=== PATIENT | male | born 1950 | race Caucasian/White ===

== ENCOUNTER 2016-12-17 07:37 | Outpatient (CLI) | payer BC ==
[2016-12-17 08:09] LABS: BASOPHILS % (AUTO) 0.6 %; EOSINOPHILS # (AUTO) 0.1 10^3/uL (0.0-0.7); EOSINOPHILS % (AUTO) 1.9 %; HCT - HEMATOCRIT 54.8 % (42.0-52.0); HGB - HEMOGLOBIN 18.7 g/dL (14.0-18.0); LYMPHOCYTES # (AUTO) 1.1 10^3/uL (1.5-3.5); LYMPHOCYTES % (AUTO) 15.6 %; MEAN CORPUSCULAR HEMOGLOBIN 33.3 pg (27.0-31.0); MEAN CORPUSCULAR HGB CONC 34.1 g/dL (32.0-36.0); MEAN CORPUSCULAR VOLUME 97.6 fL (80.0-94.0); MEAN PLATELET VOLUME 7.8 fL (7.4-11.4); MONOCYTES # (AUTO) 0.6 10^3/uL (0.0-1.0); MONOCYTES % (AUTO) 7.8 %; NEUTROPHILS # (AUTO) 5.3 10^3/uL (1.5-6.6); NEUTROPHILS % (AUTO) 74.1 %; NUCLEATED RED BLOOD CELLS AUTO 0.1 /100WBC; RED BLOOD COUNT 5.61 10^6/uL (4.70-6.10); RED CELL DISTRIBUTION WIDTH 14.5 % (12.0-15.0); UNCORRECTED WHITE BLOOD COUNT 7.2 x10^3/uL; WHITE BLOOD COUNT 7.2 x10^3/uL (4.8-10.8)
== END 2016-12-17 07:38 | disposition home or self-care (01) ==
LOC: LAB 07:37
PROVIDERS: ATTEND Internal Medicine Cardiovascular Disease
DX: I25.10 Atherosclerotic heart disease of native coronary artery without angina pectoris (principal)
CPT/HCPCS: 36415; 85025

== ENCOUNTER 2017-02-27 18:19 | Emergency (ER) | payer BC ==
--- NOTE | 2017-02-27 19:23 | ED Physician Documentation ---
PD HPI ABD PAIN - Stated complaint Stated Complaint: ABD CRAMPING - Chief complaint Chief Complaint: Abd Pain - History obtained from History obtained from: Patient - History of Present Illness Timing - onset: Today Timing - duration: Days (1) Timing - details: Gradual onset, Still present Quality: Cramping, Pain Location: Epigastric, Other (upper abd) Radiation: No: Chest, Lower back Improved by: No: Vomiting (but feels bloating and nausea; unable to vomit due to prior Anika wrap for GERD.) Worsened by: Eating Associated symptoms: Nausea. No: Fever, Vomiting, Diarrhea, Melena, Hematochezia Similar symptoms before: Diagnosis (gastritis/ulcer in the past.) Recently seen: Not recently seen Review of Systems Constitutional: denies: Fever, Chills, Myalgias Nose: denies: Rhinorrhea / runny nose, Congestion Throat: denies: Sore throat Cardiac: denies: Chest pain / pressure, Palpitations Respiratory: denies: Dyspnea GI: reports: Abdominal Pain, Nausea. denies: Vomiting, Diarrhea, Hematemesis : denies: Dysuria, Frequency PD PAST MEDICAL HISTORY - Past Medical History Cardiovascular: Coronary artery disease Respiratory: None Neuro: None GI: GI bleed, Other : None Musculoskeletal: None, Other (prior polio with weakness left leg) - Past Surgical History Past Surgical History: Yes Cardiovascular: Coronary stent - Present Medications Home Medications: Ambulatory Orders Medication Instructions Recorded Confirmed Lisinopril 20 mg ORAL BID 12/07/15 12/07/15 Pantoprazole [Protonix] 40 mg ORAL BID 12/07/15 12/07/15 Aspirin [Aspir-Low] 81 mg PO DAILYWM #30 tablet. 12/09/15 Ferrous Sulfate 325 mg PO BID #60 tablet 12/09/15 HYDROcod/ACETAM 5/325 [[place] 5/325] 1 tab PO Q6H PRN #12 tablet 02/27/17 Metoclopramide [Reglan] 10 mg PO Q6H PRN #20 tablet 02/27/17 - Allergies Allergies/Adverse Reactions: Allergies Allergy/AdvReac Type Severity Reaction Status Date / Time Penicillins Allergy Unknown Verified 02/27/17 18:25 - Social History Does the pt smoke?: No Smoking Status: Never smoker Does the pt drink ETOH?: Yes ETOH Use: Wine Does the pt have substance abuse?: No - Immunizations Immunizations are current?: Yes Immunizations: TDAP current <10years PD ED PE NORMAL - Vitals Vital signs reviewed: Yes - General General: Alert and oriented X 3, Well developed/nourished - HEENT HEENT: PERRL (nonicteric), Moist mucous membranes, Pharynx benign - Neck Neck: Supple, no meningeal sign, No adenopathy - Cardiac Cardiac: RRR, No murmur - Respiratory Respiratory: Clear bilaterally - Abdomen Abdomen: Normal bowel sounds, Soft, No organomegaly, Other (tender upper abd/ epigastric area with some guarding and hyperactive bowel sounds. ). No: Non distended (some fullness and distension in suprapubic and lower abd area. ) - Male Male : Deferred - Rectal Rectal: Deferred - Back Back: No CVA TTP - Derm Derm: Normal color, Warm and dry - Extremities Extremities: Normal ROM s pain, No edema, No calf tenderness / cord, Other ( muscle atrophy left leg compared to right.) - Neuro Neuro: Alert and oriented X 3, No motor deficit, Normal speech Results - Vitals Vitals: Vital Signs - 24 hr 02/27/17 02/27/17 02/27/17 18:22 21:12 23:54 Temperature 36.7 C Heart Rate 116 H 80 96 Respiratory 18 18 18 Rate Blood Pressure 189/117 H 186/112 H 191/123 H O2 Saturation 96 97 97 Oxygen O2 Source Room air - Labs Labs: Laboratory Tests 02/27/17 02/27/17 02/27/17 19:10 19:10 19:10 WBC 11.4 H RBC 5.81 Hgb 19.3 H Hct 57.9 H MCV 99.6 H MCH 33.3 H MCHC 33.4 RDW 13.6 Plt Count 237 MPV 8.1 Neut # 10.5 H Lymph # 0.4 L [place] # 0.4 Eos # 0.1 Baso # 0.0 Absolute Nucleated RBC 0.01 Nucleated RBC % 0.1 Sodium 132 L Potassium 3.7 Chloride 102 Carbon Dioxide 19 L Anion Gap 11.0 BUN 18 Creatinine 0.6 Estimated GFR (MDRD) 135 Glucose 131 H Calcium 8.7 Total Bilirubin 1.5 H AST 20 ALT 36 Alkaline Phosphatase 76 Troponin I < 0.04 Total Protein 7.5 Albumin 4.1 Globulin 3.4 Albumin/Globulin Ratio 1.2 Lipase 35 - Rads (name of study) abd CT Radiology: Prelim report reviewed, EMP read contemporaneously (large bladder and large gastric air amount; consider gastric outlet obstruction?. Awaiting Radiologist report. ) PD MEDICAL DECISION MAKING - ED course Complexity details: reviewed results (large bladder (very large) and distended gastrum. No GI obstruction per se. ), re-evaluated patient (feeling better with IV meds. Still slight nausea. Can try Reglan as well. To get CT abd to better evaluate for obstruction/etc. ), considered differential, d/w patient, other ( toussaint by nursing as bedside U/S still showing markedly enlarged bladder. 2700 ml out from otussaint, wow. ) Departure - Departure Disposition: Home, Self Care Clinical Impression: Urinary retention, Acute distention of stomach Abdominal pain Qualifiers: Abdominal location: epigastric Qualified Code(s): R10.13 - Epigastric pain Condition: Stable Record reviewed to determine appropriate education?: Yes Instructions: ED Catheter Care Toussaint, ED Retention Urinary Male, ED Epigastric Pain [facility] Follow-Up: Jennifer Rodriguez PA-C [Primary Care Provider] - [facility] [Provider Group] Prescriptions: HYDROcod/ACETAM 5/325 [[place] 5/325] 1 tab PO Q6H PRN #12 tablet PRN Reason: Pain Metoclopramide [Reglan] 10 mg PO Q6H PRN #20 tablet PRN Reason: Nausea / Vomiting Comments: For the upper stomach pain, the stomach does appear distended on CT with fluid and gas. It may not be passing out of the stomach well. Clear liquids only for 12-24 hours and use antiemetic and pain meds as needed. Continue your usual other meds except hold the iron tablet for a week, as this can irritate the stomach sometimes. See if you are feeling okay over the next day and if so, then resume usual diet and foods. Regarding the bladder: keep the toussaint in place until follow up. Call Urology on Wednesday to make an appt and typically this would be in the next week or so. If prolonged time for appt, then follow up with Primary Care about it end of the week. The bladder has likely been overdistended for a long time and will need time to shrink back and get some tone and healing in the wall muscles. Potentially the marked fullness of the bladder may have been causing some crowding of abd cavity and contributed to the stomach symptoms, and if so the upper stomach may improve readily with having the bladder empty. Return as needed to the ER for acute symptoms or problems.
[2017-02-27] MEDS ORDERED: SODIUM CHLORIDE 0.9% 1,000 ML IV ONE (19:37)
[2017-02-27] MEDS ORDERED: HYDROmorphone 1 MG/ML SYRINGE IVP STA ×2 (19:37→21:53)
[2017-02-27] MEDS ORDERED: LIDOCAINE VISCOUS 2% 15 ML UDC MM STA (19:37)
[2017-02-27] MEDS ORDERED: ONDANSETRON 4 MG/2 ML VIAL IVP STA (19:37)
[2017-02-27] MEDS ORDERED: MAG HYDROX/AL HYDROX/SIMETH 30 ML UDC PO STA (19:37)
[2017-02-27 19:56] LABS: BASOPHILS % (AUTO) 0.4 %; EOSINOPHILS # (AUTO) 0.1 10^3/uL (0.0-0.7); EOSINOPHILS % (AUTO) 0.4 %; HGB - HEMOGLOBIN 19.3 g/dL (14.0-18.0); LYMPHOCYTES # (AUTO) 0.4 10^3/uL (1.5-3.5); LYMPHOCYTES % (AUTO) 3.4 %; MEAN CORPUSCULAR HEMOGLOBIN 33.3 pg (27.0-31.0); MEAN CORPUSCULAR HGB CONC 33.4 g/dL (32.0-36.0); MEAN CORPUSCULAR VOLUME 99.6 fL (80.0-94.0); MEAN PLATELET VOLUME 8.1 fL (7.4-11.4); MONOCYTES # (AUTO) 0.4 10^3/uL (0.0-1.0); MONOCYTES % (AUTO) 3.1 %; NEUTROPHILS # (AUTO) 10.5 10^3/uL (1.5-6.6); NEUTROPHILS % (AUTO) 92.7 %; PLT - PLATELET COUNT 237 10^3/uL (130-450); RED BLOOD COUNT 5.81 10^6/uL (4.70-6.10); RED CELL DISTRIBUTION WIDTH 13.6 % (12.0-15.0); WHITE BLOOD COUNT 11.4 x10^3/uL (4.8-10.8)
[2017-02-27 20:08] LABS: ALBUMIN 4.1 g/dL (3.2-5.5); ALBUMIN/GLOBULIN RATIO 1.2 (1.0-2.2); BILIRUBIN,TOTAL 1.5 mg/dL (0.2-1.0); CALCIUM 8.7 mg/dL (8.5-10.3); CREATININE 0.6 mg/dL (0.6-1.2); TOTAL PROTEIN 7.5 g/dL (6.7-8.2)
[2017-02-27] MEDS ORDERED: FAMOTIDINE 20 MG TABLET PO STA (21:16)
[2017-02-27] MEDS ORDERED: IOPAMIDOL-300 100 ML VIAL ONE (21:24)
[2017-02-27] MEDS ORDERED: IOPAMIDOL-300 100 ML VIAL IVP ONE (21:41)
[2017-02-27] MEDS ORDERED: METOCLOPRAMIDE 10 MG/2 ML VIAL IVP STA (21:53)
--- NOTE | 2017-02-27 22:20 | CT Preliminary Report ---
Exam: CT ABDOMEN/PELVIS W/ IMPRESSION: 1. Mildly distended urinary bladder, suggesting bladder outlet obstruction. 2. Transdiaphragmatic herniation of the fundoplication wrap. 3. Colonic diverticulosis without CT evidence for acute diverticulitis. [facility] SITE ID: [id number]
--- NOTE | 2017-02-27 22:23 | CT Report ---
EXAM: CT ABDOMEN AND PELVIS EXAM DATE: 02/27/2017 09:54 PM. CLINICAL HISTORY: Upper abdominal pain and nausea/vomiting COMPARISONS: Noncontrast CT abdomen/pelvis 08/14/2006. TECHNIQUE: Routine helical CT imaging was performed through the abdomen and pelvis. IV contrast: 100 mL Isovue-300. Enteric contrast: None. Reconstructions: Coronal and sagittal. In accordance with CT protocol optimization, one or more of the following dose reduction techniques w ere utilized for this exam: automated exposure control, adjustment of mA and/or KV based on patient s ize, or use of iterative reconstructive technique. FINDINGS: Lung Bases: Unremarkable. Liver: Normal. No focal hepatic lesion. Gallbladder/Bile Ducts: Unremarkable. No visualized stones or biliary ductal dilatation. Spleen: Normal. Pancreas: Normal. Adrenal Glands: Normal. Kidneys and Ureters: Few subcentimeter round hypoattenuating foci in the bilateral renal cortices lik tammy represent cysts. Focal cortical scarring in the lateral left interpolar cortex. No stones, hydron ephrosis, or hydroureter. Peritoneal Cavity/Bowel: Post fundoplication with transdiaphragmatic herniation of the wrap. Colonic diverticulosis. No focal colon wall thickening or adjacent mesenteric fat stranding to suggest acute diverticulitis. No evidence for bowel obstruction. The appendix is normal. No free fluid, pneumoperit oneum, or adenopathy. Pelvic Organs: Markedly distended bladder. Several bladder diverticula, the largest left posterolater al. Vasculature: Moderate atherosclerotic calcifications within the aorta and iliac arteries. Bones: Lower thoracic spine DISH. Mild S-shaped curvature of the lumbar spine. No acute bony abnormal ity. Other: Small fat-containing right inguinal hernia. IMPRESSION: 1. Mildly distended urinary bladder, suggesting bladder outlet obstruction. 2. Transdiaphragmatic herniation of the fundoplication wrap. 3. Colonic diverticulosis without CT evidence for acute diverticulitis. [facility] Referring Provider Line: [phone] SITE ID: [id number]
[2017-02-27] MEDS ORDERED: LIDOCAINE 2% URO-JET 5 ML SYRINGE UR STA (22:48)
[2017-02-27] MEDS ORDERED: ONDANSETRON ODT 4 MG Prepack 2 TL PRN (23:03)
[2017-02-27] MEDS ORDERED: HYDROcod/ACET 5/325 Prepack 6 PO STA (23:03)
[2017-02-27 23:55] VITALS: BP 191/123
== END 2017-02-28 00:01 | disposition home or self-care (01) ==
LOC: ED 18:19
DX: T83.83XA Hemorrhage due to genitourinary prosthetic devices, implants and grafts, initial encounter (principal); R33.9 Retention of urine, unspecified; N30.01 Acute cystitis with hematuria; R14.0 Abdominal distension (gaseous); R10.13 Epigastric pain; I25.10 Atherosclerotic heart disease of native coronary artery without angina pectoris; Z86.12 Personal history of poliomyelitis; Z79.82 Long term (current) use of aspirin
CPT/HCPCS: 36415; 51702; 51798; 74177; 80053; 81001; 83690; 84484; 85025; 87086; 96361; 96374; 99283; 99284; A9270; J1170; Q9967; 81003; 86850; 86900; 86901

== ENCOUNTER 2017-02-28 07:40 | Emergency (ER) | payer BC ==
[2017-02-28 07:51] VITALS: BP 169/109
[2017-02-28] MEDS ORDERED: LIDOCAINE 2% URO-JET 5 ML SYRINGE UR STA (08:05)
--- NOTE | 2017-02-28 08:06 | ED Physician Documentation ---
PD HPI MALE - Stated complaint Stated Complaint: MALE /CATH ISSUE - Chief complaint Chief Complaint: General - History obtained from History obtained from: Patient, Family - History of Present Illness Timing - onset: Last night Timing - duration: Hours Timing - details: Abrupt onset, Still present Associated symptoms: Indwelling catheter, Toussaint problem Similar symptoms before: Has not had sx before Recently seen: Emergency Dept - Additional information Additional information: 67-year-old male appears to have had chronic urinary retention and a Toussaint catheter was placed last night and 2700 mL's of urine were drained. The patient did have some pain at the site of insertion and this pain has persisted and he is now developed some bleeding. He has the Toussaint bag filled with blood and he does have urethral pain as well. Review of Systems Constitutional: denies: Fever Eyes: denies: Decreased vision Ears: denies: Ear pain Nose: denies: Congestion Throat: denies: Sore throat Cardiac: denies: Chest pain / pressure Respiratory: denies: Dyspnea, Cough GI: denies: Abdominal Pain, Nausea, Vomiting, Constipation, Diarrhea : reports: Toussaint Problem (blood in the toussaint). denies: Dysuria Skin: denies: Rash Musculoskeletal: denies: Neck pain, Back pain PD PAST MEDICAL HISTORY - Past Medical History Cardiovascular: Coronary artery disease Respiratory: None Neuro: None GI: GI bleed, Other : None Musculoskeletal: None, Other - Past Surgical History Past Surgical History: Yes Cardiovascular: Coronary stent - Present Medications Home Medications: Ambulatory Orders Medication Instructions Recorded Confirmed Lisinopril 20 mg ORAL BID 12/07/15 12/07/15 Pantoprazole [Protonix] 40 mg ORAL BID 12/07/15 12/07/15 Aspirin [Aspir-Low] 81 mg PO DAILYWM #30 tablet. 12/09/15 Ferrous Sulfate 325 mg PO BID #60 tablet 12/09/15 HYDROcod/ACETAM 5/325 [[place] 5/325] 1 tab PO Q6H PRN #12 tablet 02/27/17 Metoclopramide [Reglan] 10 mg PO Q6H PRN #20 tablet 02/27/17 HYDROcod/ACETAM 5/325 [[place] 5/325] 1 - 2 ea PO Q6H PRN #15 tablet 02/28/17 Levofloxacin [Levaquin] 500 mg PO DAILY #10 tablet 02/28/17 Tamsulosin [Flomax] 0.4 mg PO DAILY #20 capsule 02/28/17 - Allergies Allergies/Adverse Reactions: Allergies Allergy/AdvReac Type Severity Reaction Status Date / Time Penicillins Allergy Unknown Verified 02/27/17 18:25 - Social History Does the pt smoke?: No Smoking Status: Never smoker Does the pt drink ETOH?: Yes Does the pt have substance abuse?: No - Immunizations Immunizations are current?: Yes Immunizations: TDAP current <10years PD ED PE NORMAL - Vitals Vital signs reviewed: Yes (hypertensive) - General General: Alert and oriented X 3, No acute distress, Well developed/nourished - HEENT HEENT: Atraumatic, PERRL, EOMI - Respiratory Respiratory: No respiratory distress - Derm Derm: Normal color, Warm and dry, No rash - Extremities Extremities: Other (The lower extremities are atrophied consistent with polio survival ) - Neuro Neuro: Alert and oriented X 3, Normal speech Eye Opening: Spontaneous Motor: Obeys Commands Verbal: Oriented GCS Score: 15 - Psych Psych: Normal mood, Normal affect Results - Vitals Vitals: Vital Signs - 24 hr 02/28/17 07:46 Temperature 36.5 C Heart Rate 86 Respiratory 15 Rate Blood Pressure 169/109 H O2 Saturation 97 Oxygen O2 Source Room air - Labs Labs: Laboratory Tests 02/28/17 08:42 Urine Color RED/BLOODY Urine Clarity SL. CLOUDY Urine pH 7.0 Ur Specific [place] 1.025 Urine Protein >=300 Urine Glucose (UA) NEGATIVE Urine Ketones TRACE Urine Occult Blood LARGE H Urine Nitrite POSITIVE H Urine Bilirubin NEGATIVE Urine Urobilinogen 1 (NORMAL) Ur Leukocyte Esterase TRACE H Urine RBC TNTC H Urine WBC 11-25 H Urine WBC Clumps PRESENT Ur Squamous Epith Cells RARE Squamous Urine Bacteria Few Urine Mucus Moderate Strands Ur Microscopic Review INDICATED Urine Culture Comments INDICATED PD MEDICAL DECISION MAKING - ED course Complexity details: reviewed old records, reviewed results, re-evaluated patient , considered differential, d/w patient, d/w family ED course: 67-year-old male with what appears to be chronic urinary obstruction has had a Toussaint catheter placed last night and is now developed some irritation and bleeding. Evaluation of the urine today appears to demonstrate infection and the patient is given Levaquin and Flomax here in the emergency department. His Toussaint catheter is replaced and he is administered hydrocodone. He has much better comfort following this. Departure - Departure Disposition: 01 Home, Self Care Clinical Impression: Urinary retention Urinary tract infection Qualifiers: Urinary tract infection type: acute cystitis Hematuria presence: with hematuria Qualified Code(s): N30.01 - Acute cystitis with hematuria Condition: Stable Instructions: ED UTI Cystitis Male, ED Retention Urinary Male Follow-Up: Jennifer Rodriguez PA-C [Primary Care Provider] - Prescriptions: HYDROcod/ACETAM 5/325 [[place] 5/325] 1 - 2 ea PO Q6H PRN #15 tablet PRN Reason: Pain Levofloxacin [Levaquin] 500 mg PO DAILY #10 tablet Tamsulosin [Flomax] 0.4 mg PO DAILY #20 capsule
[2017-02-28] MEDS ORDERED: HYDROcod/ACETAM 5/325 MG TABLET PO STA (08:34)
[2017-02-28 08:51] LABS: BILIRUBIN,URINE NEGATIVE (NEGATIVE)
[2017-02-28 08:57] LABS: UA w/ MICROSCOPIC CHARGE YES
[2017-02-28 08:58] LABS: UR CULTURE IF IND INDICATED
[2017-02-28] MEDS ORDERED: levoFLOXacin 250 MG TABLET PO STA (09:21)
[2017-02-28] MEDS ORDERED: TAMSULOSIN 0.4 MG CAPSULE PO STA (09:23)
== END 2017-02-28 10:02 | disposition home or self-care (01) ==
LOC: ED 07:40
DX: T83.83XA Hemorrhage due to genitourinary prosthetic devices, implants and grafts, initial encounter (principal); R33.9 Retention of urine, unspecified; N30.01 Acute cystitis with hematuria; I25.10 Atherosclerotic heart disease of native coronary artery without angina pectoris; Z86.12 Personal history of poliomyelitis; Z79.82 Long term (current) use of aspirin
CPT/HCPCS: 51702; 81001; 81003; 87086; 99283

== ENCOUNTER 2017-04-09 09:25 | Emergency (ER) | payer BC ==
[2017-04-09] MEDS ORDERED: SODIUM CHLORIDE 0.9% 1,000 ML IV ONE ×2 (10:04→11:47)
--- NOTE | 2017-04-09 10:09 | ED Physician Documentation ---
PD HPI GI BLEED - Stated complaint Stated Complaint: MALE - Chief complaint Chief Complaint: Abd Pain - History obtained from History obtained from: Patient - History of Present Illness Timing - onset: Today Timing - details: Still present Associated symptoms: BRBPR Similar symptoms before: Diagnosis (History of GI bleed x 2 in past.) - Additional information Additional information: The patient is a 67-year-old male with history of GI bleed twice in the past, who presents with bright red blood per rectum. His rectal bleeding started this morning and he has had 3 large bloody stools. He reports mild lower abdominal pain. He denies nausea or vomiting. He denies lightheadedness. He denies fever, chest pain, or shortness of breath. His last GI bleed was in December 2015, and was thought to be lower GI bleed, although the site was not specifically determined. He also had an upper GI bleed about 2 years prior to that, associated with Plavix therapy, which has since been discontinued. Colonoscopy has revealed "a lot of diverticula." Review of Systems Constitutional: denies: Fever Eyes: denies: Irritation Ears: denies: Tinnitus/ringing Nose: denies: Congestion Throat: denies: Sore throat Cardiac: denies: Chest pain / pressure Respiratory: denies: Dyspnea, Cough GI: reports: Abdominal Pain, Bloody / black stool. denies: Nausea, Vomiting : denies: Dysuria Skin: denies: Rash Musculoskeletal: denies: Back pain Neurologic: denies: Focal weakness, Numbness, Headache PD PAST MEDICAL HISTORY - Past Medical History Cardiovascular: Coronary artery disease Respiratory: None Neuro: None GI: GI bleed, Other : None Musculoskeletal: None, Other - Past Surgical History Past Surgical History: Yes Cardiovascular: Coronary stent - Present Medications Home Medications: Ambulatory Orders Medication Instructions Recorded Confirmed Pantoprazole [Protonix] 40 mg ORAL BID 12/07/15 12/07/15 Aspirin [Aspir-Low] 81 mg PO DAILYWM #30 tablet. 12/09/15 Metoclopramide [Reglan] 10 mg PO Q6H PRN #20 tablet 02/27/17 Tamsulosin [Flomax] 0.4 mg PO DAILY #20 capsule 02/28/17 Cefdinir BID 04/09/17 Losartan [Cozaar] 100 mg 04/09/17 predniSONE [Prednisone] 40 mg MDD daily 04/09/17 - Allergies Allergies/Adverse Reactions: Allergies Allergy/AdvReac Type Severity Reaction Status Date / Time Penicillins Allergy Unknown Verified 02/27/17 18:25 - Social History Does the pt smoke?: No Smoking Status: Never smoker Does the pt drink ETOH?: Yes Does the pt have substance abuse?: No - Immunizations Immunizations are current?: Yes Immunizations: TDAP current <10years PD ED PE NORMAL - Vitals Vital signs reviewed: Yes (tachycardic) - General General: Alert and oriented X 3, Well developed/nourished, Other (I was called stat to the patient's room when he lost consciousness while being assessed by the nurse.) - HEENT HEENT: Atraumatic, EOMI, Moist mucous membranes - Neck Neck: Supple, no meningeal sign, No adenopathy, No JVD - Cardiac Cardiac: No murmur, Other (Rapid rate, regular rhythm.) - Respiratory Respiratory: No respiratory distress, Clear bilaterally - Abdomen Abdomen: Soft, Other (Mild tenderness to palpation in the lower abdomen, without rebound or guarding.) - Rectal Rectal: Other (Dark bloody stool.) - Back Back: No CVA TTP - Derm Derm: Other (Pale appearance.) - Extremities Extremities: No edema, No calf tenderness / cord - Neuro Neuro: Alert and oriented X 3, No motor deficit, No sensory deficit, Other (The patient was initially not responding verbally and had eye deviation to the left when I entered the room. After he was placed in Trendelenburg he quickly regained consciousness, and was fully coherent.) Eye Opening: Spontaneous Motor: Obeys Commands Verbal: Oriented GCS Score: 15 Results - Vitals Vitals: Vital Signs - 24 hr 04/09/17 04/09/17 04/09/17 09:37 10:14 10:42 Temperature 36.4 C L Heart Rate 119 H 88 70 Respiratory 18 14 16 Rate Blood Pressure 144/95 H 137/99 H 177/88 H O2 Saturation 97 97 98 04/09/17 04/09/17 11:45 12:57 Temperature Heart Rate 90 101 H Respiratory 17 17 Rate Blood Pressure 140/107 H 155/103 H O2 Saturation 97 99 Oxygen O2 Source Room air - EKG (time done) 10:10 Rate: Rate (enter#) (83) Rhythm: NSR [place]: Normal Intervals: Normal ID QRS: Normal Ischemia: Normal ST segments Computer interpretation: Agree with computer - Labs Labs: Laboratory Tests 04/09/17 04/09/17 04/09/17 10:07 10:07 10:07 WBC 12.1 H RBC 4.69 L Hgb 15.5 Hct 46.2 MCV 98.6 H MCH 33.0 H MCHC 33.5 RDW 13.5 Plt Count 515 H MPV 7.1 L Neut # 9.5 H Lymph # 1.6 [place] # 0.9 Eos # 0.0 Baso # 0.1 Absolute Nucleated RBC 0.00 Nucleated RBC % 0.0 PT 13.4 H INR 1.2 APTT 25.4 Sodium 135 Potassium 3.9 Chloride 98 L Carbon Dioxide 23 Anion Gap 14.0 H BUN 21 H Creatinine 0.8 Estimated GFR (MDRD) 97 Glucose 118 H Calcium 8.8 Total Bilirubin 0.7 AST 47 H ALT 56 Alkaline Phosphatase 63 Total Protein 7.1 Albumin 3.3 Globulin 3.8 Albumin/Globulin Ratio 0.9 L Lipase 67 H Blood Type Antibody Screen Crossmatch IS Only 04/09/17 04/09/17 10:07 11:29 WBC RBC Hgb 13.7 L Hct 40.2 L MCV MCH MCHC RDW Plt Count MPV Neut # Lymph # [place] # Eos # Baso # Absolute Nucleated RBC Nucleated RBC % PT INR APTT Sodium Potassium Chloride Carbon Dioxide Anion Gap BUN Creatinine Estimated GFR (MDRD) Glucose Calcium Total Bilirubin AST ALT Alkaline Phosphatase Total Protein Albumin Globulin Albumin/Globulin Ratio Lipase Blood Type A POSITIVE Antibody Screen NEGATIVE Crossmatch IS Only See Detail PD MEDICAL DECISION MAKING - ED course Complexity details: reviewed results, re-evaluated patient, considered differential, d/w patient, d/w family, d/w direct sales consultant ED course: The patient's presentation is significant for acute GI bleed with syncopal episode. He had 3 large bloody stools prior to arrival in the emergency department, and a fourth 1 at the time of triage. He became syncopal while being admitted to the emergency department. His initial hemoglobin and hematocrit were 15.5 and 46.2. Repeat hemoglobin and hematocrit after 1.5 L normal saline were 13.7 and 40.9. Treatment in the emergency department included placement of 2 peripheral IVs, normal saline 2 L IV followed by infusion at 250 mL/h, and famotidine 20 mg IV. 2 units of typed specific blood were ordered, but were held when he improved after administration of NS, and his Hgb and Hct results became known. I discussed his condition with Dr. Mnedez, who is on-call for Dr. Agarwal , the patient's ship steward. He will accept the patient in transfer to [facility] in [place]. I discussed his condition with the emergency physician, Dr. Crisostomo, since the patient will be transferred initially to the emergency department at [facility]. Transfer forms were completed. At the time of transfer the patient's pulse is 101, blood pressure is 155/103, and he is warm and pink. Departure - Departure Disposition: 02 Transfer Acute Care Hosp Clinical Impression: GI bleed Qualifiers: GI bleed type/associated pathology: unspecified gastrointestinal hemorrhage type Qualified Code(s): K92.2 - Gastrointestinal hemorrhage, unspecified Discharge Date/Time: 04/09/17 12:58
[2017-04-09 10:20] LABS: BASOPHILS # (AUTO) 0.1 10^3/uL (0.0-0.1); BASOPHILS % (AUTO) 0.5 %; EOSINOPHILS % (AUTO) 0.1 %; HGB - HEMOGLOBIN 15.5 g/dL (14.0-18.0); LYMPHOCYTES # (AUTO) 1.6 10^3/uL (1.5-3.5); LYMPHOCYTES % (AUTO) 13.2 %; MEAN CORPUSCULAR HGB CONC 33.5 g/dL (32.0-36.0); MEAN CORPUSCULAR VOLUME 98.6 fL (80.0-94.0); MEAN PLATELET VOLUME 7.1 fL (7.4-11.4); MONOCYTES # (AUTO) 0.9 10^3/uL (0.0-1.0); MONOCYTES % (AUTO) 7.8 %; NEUTROPHILS # (AUTO) 9.5 10^3/uL (1.5-6.6); NEUTROPHILS % (AUTO) 78.4 %; PLT - PLATELET COUNT 515 10^3/uL (130-450); RED BLOOD COUNT 4.69 10^6/uL (4.70-6.10); RED CELL DISTRIBUTION WIDTH 13.5 % (12.0-15.0); WHITE BLOOD COUNT 12.1 x10^3/uL (4.8-10.8)
[2017-04-09 10:25] LABS: INR 1.2 (0.8-1.2); PT - PROTHROMBIN TIME 13.4 secs (9.9-12.6)
[2017-04-09 10:31] LABS: ALBUMIN 3.3 g/dL (3.2-5.5); ALBUMIN/GLOBULIN RATIO 0.9 (1.0-2.2); BILIRUBIN,TOTAL 0.7 mg/dL (0.2-1.0); CALCIUM 8.8 mg/dL (8.5-10.3); CREATININE 0.8 mg/dL (0.6-1.2); TOTAL PROTEIN 7.1 g/dL (6.7-8.2)
[2017-04-09 11:32] LABS: HGB - HEMOGLOBIN 13.7 g/dL (14.0-18.0)
[2017-04-09] MEDS ORDERED: FAMOTIDINE 20 MG/50 ML 50 ML IV ONE (11:45)
[2017-04-09 12:58] VITALS: BP 155/103
== END 2017-04-09 12:58 | disposition short-term general hospital (02) ==
LOC: ED 09:25
DX: K92.2 Gastrointestinal hemorrhage, unspecified (principal); I25.10 Atherosclerotic heart disease of native coronary artery without angina pectoris; Z95.5 Presence of coronary angioplasty implant and graft; Z79.82 Long term (current) use of aspirin
CPT/HCPCS: 36415; 80053; 83690; 85014; 85018; 85025; 85610; 85730; 86850; 86900; 86901; 86920; 93005; 96361; 96374; 99284; 99285

== ENCOUNTER 2017-04-09 12:50 | Outpatient (CLI) | payer BC | END 2017-04-09 12:51 | disposition short-term general hospital (02) | LOC: EMS 12:50 | PROVIDERS: ATTEND Surgery | DX: K92.1 Melena (principal) | CPT/HCPCS: A0425; A0426 ==

== ENCOUNTER 2017-04-16 23:31 | Outpatient (CLI) | payer BC | END 2017-04-16 23:32 | disposition critical access hospital (66) | LOC: EMS 23:31 | PROVIDERS: ATTEND Surgery | DX: R10.30 Lower abdominal pain, unspecified (principal) | CPT/HCPCS: A0425; A0429 ==

== ENCOUNTER 2017-04-16 23:43 | Emergency (ER) | payer BC ==
[2017-04-16] MEDS ORDERED: SODIUM CHLORIDE 0.9% 1,000 ML IV ONE (23:50)
[2017-04-17 00:17] LABS: BASOPHILS % (AUTO) 0.3 %; EOSINOPHILS # (AUTO) 0.1 10^3/uL (0.0-0.7); EOSINOPHILS % (AUTO) 1.2 %; HGB - HEMOGLOBIN 7.9 g/dL (14.0-18.0); LYMPHOCYTES # (AUTO) 0.6 10^3/uL (1.5-3.5); LYMPHOCYTES % (AUTO) 5.7 %; MEAN CORPUSCULAR HEMOGLOBIN 31.1 pg (27.0-31.0); MEAN CORPUSCULAR HGB CONC 33.6 g/dL (32.0-36.0); MEAN CORPUSCULAR VOLUME 92.5 fL (80.0-94.0); MEAN PLATELET VOLUME 7.1 fL (7.4-11.4); MONOCYTES # (AUTO) 0.4 10^3/uL (0.0-1.0); MONOCYTES % (AUTO) 3.9 %; NEUTROPHILS # (AUTO) 10.1 10^3/uL (1.5-6.6); NEUTROPHILS % (AUTO) 88.9 %; PLT - PLATELET COUNT 316 10^3/uL (130-450); RED BLOOD COUNT 2.53 10^6/uL (4.70-6.10); RED CELL DISTRIBUTION WIDTH 19.9 % (12.0-15.0); WHITE BLOOD COUNT 11.3 x10^3/uL (4.8-10.8)
[2017-04-17 00:27] LABS: ALBUMIN 2.6 g/dL (3.2-5.5); ALBUMIN/GLOBULIN RATIO 0.9 (1.0-2.2); BILIRUBIN,TOTAL 0.5 mg/dL (0.2-1.0); CALCIUM 8.1 mg/dL (8.5-10.3); CREATININE 0.6 mg/dL (0.6-1.2); TOTAL PROTEIN 5.6 g/dL (6.7-8.2)
[2017-04-17] MEDS ORDERED: MORPHINE 2 MG/ML CARPUJECT IVP STA (00:52)
--- NOTE | 2017-04-17 01:02 | ED Physician Documentation ---
PD HPI ABD PAIN - Stated complaint Stated Complaint: ABD PAIN - Chief complaint Chief Complaint: Abd Pain - History obtained from History obtained from: Patient, EMS - History of Present Illness Timing - onset: Today Timing - details: Gradual onset, Still present Quality: Cramping, Aching Location: Periumbilical, Suprapubic Worsened by: Position, Palpation Associated symptoms: Nausea. No: Fever, Vomiting, Diarrhea, Constipation Similar symptoms before: Work up / diagnostics, Treatment Recently seen: Surgery - Additional information Additional information: Patient is a 67 year old male who recently had an embolization of a bleeding diverticulosis. Patient was in the hospital until two days ago. Patient states that his pain had been controlled in the hospital but since he had gone home he started to develop sudden sharp suprapubic pain. Patient took one of his oxys but the pain has persisted. Review of Systems Constitutional: reports: Chills. denies: Fever Eyes: denies: Decreased vision Ears: denies: Ear pain, Drainage/discharge Nose: reports: Reviewed and negative Throat: reports: Reviewed and negative Cardiac: denies: Chest pain / pressure, Palpitations Respiratory: denies: Dyspnea, Cough, Wheezing GI: reports: Abdominal Pain, Nausea. denies: Vomiting, Constipation, Diarrhea : denies: Dysuria, Frequency Skin: denies: Rash, Lesions Musculoskeletal: denies: Neck pain, Back pain Neurologic: denies: Generalized weakness, Focal weakness, Numbness, Headache, Head injury Immunocompromised: denies: Immunocompromised PD PAST MEDICAL HISTORY - Past Medical History Cardiovascular: Coronary artery disease Respiratory: None Neuro: None GI: GERD, GI bleed, Ulcers, Diverticulitis, Other : None Psych: Depression, Anxiety Musculoskeletal: Chronic back pain, Other - Past Surgical History Past Surgical History: Yes General: Bowel surgery, Gastric surgery, Colonoscopy, EGD Cardiovascular: Coronary stent - Present Medications Home Medications: Ambulatory Orders Medication Instructions Recorded Confirmed Pantoprazole [Protonix] 40 mg ORAL BID 12/07/15 12/07/15 Aspirin [Aspir-Low] 81 mg PO DAILYWM #30 tablet. 12/09/15 Metoclopramide [Reglan] 10 mg PO Q6H PRN #20 tablet 02/27/17 Tamsulosin [Flomax] 0.4 mg PO DAILY #20 capsule 02/28/17 Cefdinir BID 04/09/17 Losartan [Cozaar] 100 mg 04/09/17 predniSONE [Prednisone] 40 mg MDD daily 04/09/17 Ciprofloxacin HCl [Cipro] 500 mg PO BID #20 tablet 04/17/17 Metronidazole [Flagyl] 500 mg PO TID #30 tablet 04/17/17 Ondansetron Odt [Zofran] 4 mg TL Q6H PRN #20 tablet 04/17/17 oxyCODONE/ACET 5/325 [Percocet 5 1 each PO Q4-6H #7 tablet 04/17/17 mg/325 mg] - Allergies Allergies/Adverse Reactions: Allergies Allergy/AdvReac Type Severity Reaction Status Date / Time Penicillins Allergy Unknown Verified 04/16/17 23:52 - Social History Does the pt smoke?: No Smoking Status: Never smoker Does the pt drink ETOH?: Yes Does the pt have substance abuse?: No - Immunizations Immunizations are current?: Yes Immunizations: TDAP current <10years PD ED PE NORMAL - Vitals Vital signs reviewed: Yes - General General: Alert and oriented X 3 - HEENT HEENT: Atraumatic - Neck Neck: Supple, no meningeal sign - Cardiac Cardiac: RRR, No murmur - Respiratory Respiratory: No respiratory distress - Derm Derm: Normal color - Neuro Neuro: Alert and oriented X 3 Eye Opening: Spontaneous Motor: Obeys Commands Verbal: Oriented GCS Score: 15 PD ED PE EXPANDED - HEENT HEENT: Dry mucous membranes - Abdomen Abdomen: Tender to palpation, Periumbilical, Suprapubic - Male Male : Other (mild edema in groin, likely secondary to post op changes. ) - Extremities Extremities: Other (decreased muscle tone of left lower extremity secondary to polio) Results - Vitals Vitals: Vital Signs - 24 hr 04/16/17 23:50 Temperature 36.8 C Heart Rate 99 Respiratory 20 Rate Blood Pressure 138/74 H O2 Saturation 98 Oxygen O2 Source Room air - Labs Labs: Laboratory Tests 04/16/17 04/16/17 04/16/17 00:00 00:00 00:00 WBC 11.3 H RBC 2.53 L Hgb 7.9 L Hct 23.4 L MCV 92.5 MCH 31.1 H MCHC 33.6 RDW 19.9 H Plt Count 316 MPV 7.1 L Neut # 10.1 H Lymph # 0.6 L [place] # 0.4 Eos # 0.1 Baso # 0.0 Absolute Nucleated RBC 0.00 Nucleated RBC % 0.0 Sodium 135 Potassium 3.2 L Chloride 96 L Carbon Dioxide 25 Anion Gap 14.0 H BUN 7 Creatinine 0.6 Estimated GFR (MDRD) 135 Glucose 164 H Lactic Acid Calcium 8.1 L Total Bilirubin 0.5 AST 16 ALT 16 Alkaline Phosphatase 57 Troponin I < 0.04 Total Protein 5.6 L Albumin 2.6 L Globulin 3.0 Albumin/Globulin Ratio 0.9 L Lipase 28 04/16/17 00:20 WBC RBC Hgb Hct MCV MCH MCHC RDW Plt Count MPV Neut # Lymph # [place] # Eos # Baso # Absolute Nucleated RBC Nucleated RBC % Sodium Potassium Chloride Carbon Dioxide Anion Gap BUN Creatinine Estimated GFR (MDRD) Glucose Lactic Acid 1.2 Calcium Total Bilirubin AST ALT Alkaline Phosphatase Troponin I Total Protein Albumin Globulin Albumin/Globulin Ratio Lipase - Rads (name of study) ct abd pelvis Radiology: Final report received, See rad report (diverticulitis, no abscess or obstruction) PD MEDICAL DECISION MAKING - ED course Complexity details: reviewed old records, reviewed results, re-evaluated patient , considered differential, d/w patient ED course: patient was seen and examined at bedside. IV access was gained and labs were drawn. Patient was treated with a fluid bolus and morphine. imaging was ordered. When patient's labs came back the results showed an anemia of 7.9. results were discussed with the family who stated two days ago it was 7.5. Patient was sent for CT. When patient returned the results were reviewed. Patient was found to have diverticulitis and an enlarged bladder. patient stated that due to his polio he always has a distended bladder and did not want a toussaint. Patient was able to urinate on his own and produce 600ml. Patient was treated with cipro and flagyl which he was able to tolerate without difficulty. Patient and were comfortable with a trial of outpatient antibiotics. Patient required no further inpatient work up at this time and was stable for discharge with close outpatient follow up. Departure - Departure Disposition: 01 Home, Self Care Clinical Impression: Diverticulitis of gastrointestinal tract Condition: Stable Instructions: ED Diverticulitis Follow-Up: primary,care provider [Other] - Within 3 Days Prescriptions: Ciprofloxacin HCl [Cipro] 500 mg PO BID #20 tablet Metronidazole [Flagyl] 500 mg PO TID #30 tablet Ondansetron Odt [Zofran] 4 mg TL Q6H PRN #20 tablet PRN Reason: Nausea / Vomiting oxyCODONE/ACET 5/325 [Percocet 5 mg/325 mg] 1 each PO Q4-6H #7 tablet Comments: Your symptoms today are being caused at least in part to diverticulitis. You were started on two antibiotics today and you will need to be on them for the next 10 days. You should start with a clear liquid diet and progress slowly. You should follow up with your doctor on wednesday for re-evaluation. You may return to the emergency department at any time for new, worsening or uncontrollable symptoms.
[2017-04-17] MEDS ORDERED: IOPAMIDOL-300 100 ML VIAL ONE (01:14)
[2017-04-17] MEDS ORDERED: IOPAMIDOL-300 100 ML VIAL IVP ONE (01:26)
--- NOTE | 2017-04-17 01:57 | CT Preliminary Report ---
Exam: CT ABDOMEN/PELVIS W/ IMPRESSION: 1. Inflamed hepatic flexure of the colon, likely diverticulitis given patient's severe diffuse divert icular disease. Focal colitis 2. Quite distended urinary bladder with back pressure hydroureteronephrosis. Suspect acute on chronic bladder outlet obstruction. Consider Angel catheterization. 3. Severe coronary calcifications. 4. Small hiatal hernia with note of prior Anika. [facility] SITE ID: [id number]
--- NOTE | 2017-04-17 02:00 | CT Report ---
EXAM: CT ABDOMEN AND PELVIS EXAM DATE: 04/17/2017 01:37 AM. CLINICAL HISTORY: Recent abdominal surgery and GI bleed, abdominal pain. COMPARISONS: 02/27/2017. TECHNIQUE: Routine helical CT imaging was performed through the abdomen and pelvis. IV contrast: Yes . Enteric contrast: No . Reconstructions: Coronal and sagittal. In accordance with CT protocol optimization, one or more of the following dose reduction techniques w ere utilized for this exam: automated exposure control, adjustment of mA and/or KV based on patient s ize, or use of iterative reconstructive technique. FINDINGS: Lung Bases: Severe coronary calcifications. Small hiatal hernia with note of prior Anika. Liver: Unremarkable. No suspicious masses. Gallbladder/Bile Ducts: Unremarkable. Spleen: Unremarkable. Pancreas: Unremarkable. Adrenal Glands: Unremarkable. Kidneys: Mild bilateral back pressure hydronephrosis to the level of the quite distended urinary blad hiro. No renal masses seen. Peritoneal Cavity/Bowel: Severe colonic diverticulosis. Evidence of mild inflammation involving hepat ic flexure of the colon. No gross perforation or abscess. No mass seen. Pelvic Organs: Severely distended trabeculated urinary bladder. Posterior left bladder diverticulum a gain noted. Prostate mildly enlarged. Vasculature: No aneurysms or other significant abnormality. Bones: No significant abnormality. Other: Muscle atrophy, left worse than right. IMPRESSION: 1. Inflamed hepatic flexure of the colon, likely diverticulitis given patient's severe diffuse divert icular disease. Focal nonspecific colitis within differential. No pericolonic abscess seen. 2. Quite distended urinary bladder with back pressure hydroureteronephrosis. Suspect acute on chronic bladder outlet obstruction. Consider Angel catheterization. 3. Severe coronary calcifications. 4. Small hiatal hernia with note of prior Anika. [facility] Referring Provider Line: [phone] SITE ID: [id number]
[2017-04-17] MEDS ORDERED: CIPROFLOXACIN 250 MG TABLET PO STA (02:23)
[2017-04-17] MEDS ORDERED: metroNIDAZOLE 250 MG TABLET PO STA (02:23)
[2017-04-17] MEDS ORDERED: oxyCOD/ACETAMIN 5 MG/325 MG TABLET PO STA (02:50)
[2017-04-17 03:04] VITALS: BP 130/70
== END 2017-04-17 03:03 | disposition home or self-care (01) ==
LOC: EDUNIT# → ED 23:43
DX: K57.92 Diverticulitis of intestine, part unspecified, without perforation or abscess without bleeding (principal); I25.10 Atherosclerotic heart disease of native coronary artery without angina pectoris; Z95.5 Presence of coronary angioplasty implant and graft; Z79.82 Long term (current) use of aspirin
CPT/HCPCS: 36415; 74177; 80053; 83605; 83690; 84484; 85025; 96374; 99284; A9270; Q9967

== ENCOUNTER 2017-04-18 13:00 | Inpatient (IN) | payer BC, MEDICARE ==
[2017-04-18 13:33] LABS: BASOPHILS % (AUTO) 0.3 %; EOSINOPHILS # (AUTO) 0.1 10^3/uL (0.0-0.7); EOSINOPHILS % (AUTO) 1.1 %; HGB - HEMOGLOBIN 8.8 g/dL (14.0-18.0); LYMPHOCYTES # (AUTO) 0.5 10^3/uL (1.5-3.5); LYMPHOCYTES % (AUTO) 5.6 %; MEAN CORPUSCULAR HEMOGLOBIN 32.1 pg (27.0-31.0); MEAN CORPUSCULAR VOLUME 91.6 fL (80.0-94.0); MEAN PLATELET VOLUME 6.9 fL (7.4-11.4); MONOCYTES # (AUTO) 0.4 10^3/uL (0.0-1.0); MONOCYTES % (AUTO) 4.3 %; NEUTROPHILS # (AUTO) 8.6 10^3/uL (1.5-6.6); NEUTROPHILS % (AUTO) 88.7 %; PLT - PLATELET COUNT 384 10^3/uL (130-450); RED BLOOD COUNT 2.74 10^6/uL (4.70-6.10); WHITE BLOOD COUNT 9.7 x10^3/uL (4.8-10.8)
[2017-04-18 13:47] LABS: ALBUMIN 2.8 g/dL (3.2-5.5); ALBUMIN/GLOBULIN RATIO 0.8 (1.0-2.2); BILIRUBIN,TOTAL 0.7 mg/dL (0.2-1.0); CALCIUM 8.1 mg/dL (8.5-10.3); CREATININE 0.6 mg/dL (0.6-1.2); TOTAL PROTEIN 6.1 g/dL (6.7-8.2)
[2017-04-18] MEDS ORDERED: HYDROmorphone 1 MG/ML SYRINGE IVP STA (14:39)
[2017-04-18] MEDS ORDERED: SODIUM CHLORIDE 0.9% 1,000 ML IV ONE ×2 (14:39)
--- NOTE | 2017-04-18 14:43 | ED Physician Documentation ---
PD HPI ABD PAIN - Stated complaint Stated Complaint: LOW ABD PX - Chief complaint Chief Complaint: Abd Pain - History obtained from History obtained from: Patient - History of Present Illness Timing - onset: How many days ago (several) Timing - duration: Days Timing - details: Gradual onset Pain level max: 9 Pain level now: 9 Quality: Aching, Pain Location: All over / everywhere Radiation: Other (non-radiating) Improved by: Laying still Worsened by: Eating, Moving Associated symptoms: Nausea, Constipation (no BM for a few days). No: Fever, Vomiting, Hematemesis, Diarrhea - Additional information Additional information: took cipro and flagyl this am. CT with significant diverticulitis 2 days ago. increasing pain today, not controlled at home. Review of Systems Ten Systems: 10 systems reviewed and negative Constitutional: denies: Fever, Chills Ears: denies: Ear pain Nose: denies: Rhinorrhea / runny nose, Congestion Throat: denies: Sore throat Cardiac: denies: Chest pain / pressure Respiratory: denies: Cough Skin: denies: Rash Musculoskeletal: denies: Neck pain, Back pain Neurologic: denies: Focal weakness, Numbness, Headache PD PAST MEDICAL HISTORY - Past Medical History Cardiovascular: Coronary artery disease Respiratory: None Neuro: None GI: GERD, GI bleed, Ulcers, Diverticulitis, Other : None Psych: Depression, Anxiety Musculoskeletal: Chronic back pain, Other - Past Surgical History Past Surgical History: Yes General: Bowel surgery, Gastric surgery, Colonoscopy, EGD Cardiovascular: Coronary stent - Present Medications Home Medications: Ambulatory Orders Medication Instructions Recorded Confirmed Pantoprazole [Protonix] 40 mg ORAL BID 12/07/15 04/18/17 Aspirin [Aspir-Low] 81 mg PO DAILYWM #30 tablet. 12/09/15 04/18/17 Tamsulosin [Flomax] 0.4 mg PO DAILY #20 capsule 02/28/17 04/18/17 Losartan [Cozaar] 100 mg PO DAILY 04/09/17 04/18/17 Ciprofloxacin HCl [Cipro] 500 mg PO BID #20 tablet 04/17/17 04/18/17 Metronidazole [Flagyl] 500 mg PO TID #30 tablet 04/17/17 04/18/17 Finasteride [Finasteride] 5 mg PO DAILY 04/18/17 04/18/17 Zolpidem Tartrate [Zolpidem 5 mg PO QPM PRN 04/18/17 04/18/17 Tartrate] - Allergies Allergies/Adverse Reactions: Allergies Allergy/AdvReac Type Severity Reaction Status Date / Time Penicillins Allergy Unknown Verified 04/16/17 23:52 - Social History Does the pt smoke?: No Smoking Status: Never smoker Does the pt drink ETOH?: Yes Does the pt have substance abuse?: No - Immunizations Immunizations are current?: Yes Immunizations: TDAP current <10years PD ED PE NORMAL - Vitals Vital signs reviewed: Yes - General General: Alert and oriented X 3, No acute distress - HEENT HEENT: Moist mucous membranes - Neck Neck: Supple, no meningeal sign - Cardiac Cardiac: RRR - Respiratory Respiratory: No respiratory distress, Clear bilaterally - Abdomen Abdomen: Soft, Non distended, Other (Mild tenderness palpation diffusely. No peritoneal signs. No rebound or guarding) - Derm Derm: Warm and dry - Neuro Neuro: Alert and oriented X 3 - Psych Psych: Normal mood, Normal affect Results - Vitals Vitals: Vital Signs - 24 hr 04/18/17 13:03 Temperature 36.7 C Heart Rate 104 H Respiratory 18 Rate Blood Pressure 165/85 H O2 Saturation 100 Oxygen O2 Source Room air - Labs Labs: Laboratory Tests 04/18/17 04/18/17 13:30 13:30 WBC 9.7 RBC 2.74 L Hgb 8.8 L Hct 25.1 L MCV 91.6 MCH 32.1 H MCHC 35.0 RDW 17.0 H Plt Count 384 MPV 6.9 L Neut # 8.6 H Lymph # 0.5 L [place] # 0.4 Eos # 0.1 Baso # 0.0 Absolute Nucleated RBC 0.00 Nucleated RBC % 0.0 Sodium 134 L Potassium 3.2 L Chloride 95 L Carbon Dioxide 26 Anion Gap 13.0 BUN 5 L Creatinine 0.6 Estimated GFR (MDRD) 135 Glucose 169 H Calcium 8.1 L Total Bilirubin 0.7 AST 18 ALT 17 Alkaline Phosphatase 67 Total Protein 6.1 L Albumin 2.8 L Globulin 3.3 Albumin/Globulin Ratio 0.8 L Lipase 17 L PD MEDICAL DECISION MAKING - ED course Complexity details: reviewed old records, reviewed results, re-evaluated patient , considered differential, d/w patient, d/w family, d/w business solutions consultant ED course: Patient is a 67-year-old male who presents to the emergency department after being recently diagnosed with diverticulitis. Has ongoing increasing pain. No fevers.Had a CT scan less than 48 hours ago, will not repeat it at this time. There are no peritoneal signs on exam. Take his Cipro and Flagyl this morning. Pain controlled here. Discussed with the hospitalist and will admit. This document was made in part using voice recognition software. While efforts are made to proofread this document, sound alike and grammatical errors may occur. Departure - Departure Disposition: 67 [facility] DC/Xfer Clinical Impression: Hx of post-polio syndrome, Diverticulitis of gastrointestinal tract, Inadequate pain control Abdominal pain Qualifiers: Abdominal location: generalized Qualified Code(s): R10.84 - Generalized abdominal pain Constipation Qualifiers: Constipation type: other constipation type Qualified Code(s): K59.09 - Other constipation Condition: Good Discharge Date/Time: 04/18/17 15:25
[2017-04-18] MEDS ORDERED: TEMAZEPAM 15 MG CAPSULE PO PRN (14:52)
[2017-04-18] MEDS ORDERED: SODIUM CHLORIDE 0.9% 1,000 ML IV SCH (15:00)
--- NOTE | 2017-04-18 15:49 | HISTORY & PHYSICAL EXAMINATION ---
Chief Complaint - Chief Complaint Chief Complaint: Right and left lower abdominal pain. History of Present Illness - Admitted From Admitted From:: ED - History Obtained From Records Reviewed: yes History obtained from: chart review, patient Exam Limitations: none - History of Present Illness HPI Comment/Other: Wilian Solo is a 67-year old white male with a past medical history of polio with BLE disabilities, which he uses crutches, urinary retention, enlarged prostate, CAD, post 7 coronary stents, GERD resolved after Dino procedure to repair hiatal hernia, GI bleed, ulcers, diverticulosis, chronic back pain, anxiety, depression, and hypertension. Patient was just discharged on 04/16/17 from [facility] in [place] after a interventional radiology diverticula emboli repair. In regards to that hospital stay, he was on his way to their ED via driving a private car, when he felt the urge to have a BM and pulled over at a rest stop. He had a large frankly blood stool, lost consciousness, and an ambulance transported him urgently to [facility] in [place]. Since being discharged, he has had bilateral lower abdominal pain with no relief. Our ED prescribed Cipro and Flagyl after presenting to the ED just yesterday, but the pain in his lower abdomen did not resolve, so he came back to the ED today. He notes that he has not moved his bowels since 04/15/17. He will be admitted to inpatient for IV antibiotic to treat diverticulitis, pain management and further symptom control. History - Past Medical History Cardiovascular: reports: Coronary artery disease, Peripheral Vascular Disease Respiratory: reports: None Neuro: reports: None, Other (polio) GI: reports: GERD, GI bleed, Ulcers, Hiatal hernia (status post repair), Diverticulitis, Other : reports: Benign prostate hypertrophy, Retention, Incontinence, Chronic bladder infection, Nocturia, Frequency Psych: reports: Depression, Anxiety Musculoskeletal: reports: Chronic back pain, Other (polio) MRSA Hx?: No - Past Surgical History General: reports: Bowel surgery, Gastric surgery, Colonoscopy, EGD Cardiovascular: reports: Coronary stent, Cardiac catheterization Other past surgical history: Hepatic flexure diverticular bleed status post coil embolization on 04/15/17. Status post 3 units of PRBCs for acute blood loss. - Family & Social History Family History: Mother: , CAD, Father: , Cancer, Sister: Alive and Well, Family History Comment/Other: Patient has 5 sisters, one of which has . 3 of them have suffered a CVA. Living arrangement: At home Living Situation: With spouse/s.o. Social History Notes: Patient prefers to be called "FRANK". Patient is to , Cande and they live in [place], [place]. 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 He has 2 grown boys from previous marriage. He denies smoking, alcohol, or marijuana use. - Substance History Use: Uses substance without health or social issues: NONE Abuse: Recurrent use of substance despite neg consequences: NONE Dependence: Experiences withdrawal or developed tolerances: NONE - POLST Patient has POLST: No POLST Status: DNR Meds/Allgy - Home Medications Home Medications: Ambulatory Orders Medication Instructions Recorded Confirmed RX: Pantoprazole [Protonix] 40 mg ORAL BID 12/07/15 04/18/17 RX: Aspirin [Aspir-Low] 81 mg PO DAILYWM #30 tablet. 12/09/15 04/18/17 RX: Tamsulosin [Flomax] 0.4 mg PO DAILY #20 capsule 02/28/17 04/18/17 RX: Losartan [Cozaar] 100 mg PO DAILY 04/09/17 04/18/17 Metronidazole [Flagyl] 500 mg PO TID #30 tablet 04/17/17 04/18/17 RX: Ciprofloxacin HCl [Cipro] 500 mg PO BID #20 tablet 04/17/17 04/18/17 Finasteride [Finasteride] 5 mg PO DAILY 04/18/17 04/18/17 Zolpidem Tartrate [Zolpidem 5 mg PO QPM PRN 04/18/17 04/18/17 Tartrate] - Allergies Allergies/Adverse Reactions: Allergies Allergy/AdvReac Type Severity Reaction Status Date / Time walnut Allergy Mild Rash Verified 04/19/17 01:45 Penicillins Allergy Unknown Unknown Verified 04/19/17 01:44 Review of Systems - Constitutional Constitutional: reports: Fatigue, Weakness, Poor appetite, Weight loss - Eyes Eyes: reports: Corrective lenses - Ears, Nose & Throat Ears, Nose & Throat: reports: Nasal obstruction, Nasal congestion, Postnasal drainage, Dental decay (admits to cavities, although recieves routine dental care.) - Cardiovascular Cariovascular: reports: Lightheadedness (only during this time of diverticulitis.) - Gastrointestinal Gastrointestinal: reports: Abdominal pain, Abdominal distention, Constipation, Diarrhea, Change in bowel habits, Bloody stools (No stool since 04/15/17. ), Poor appetite - Genitourinary Genitourinary: reports: Dysuria, Frequency, Urgency, Nocturia, Other (retention. ) - Musculoskeletal Musculoskeletal: reports: Muscle weakness, Joint swelling, Other (chronic diabilities related to polio, BLE weakness, atrophy. Patient uses braces to walk for at least ~40 years.) - Neurological Neurological: reports: General weakness, Pre-existing deficit - Psychiatric Psychiatric: reports: Depression, Anxiety - Hematologic/Lymphatic Hematologic/Lymphatic: reports: Recurrent infections - All Other Systems All Other Systems: reports: Reviewed and negative Exam - Vital Signs Reviewed Vital Signs: Yes Vital Signs: Vital Signs x48h Temp Pulse Resp BP Pulse Ox 04/18/17 15:36 36.7 C 96 16 152/86 H 100 - Physical Exam General Appearance: positive: No acute distress (Patient seems tired, and explains he has felt "wiped out".), Alert, Anxious Eyes Bilateral: positive: Normal inspection ENT: positive: ENT inspection nml, Pharynx nml, Dry mucous membranes Neck: positive: Nml inspection, Thyroid nml, No JVD, Stiff neck Respiratory: positive: Chest non-tender, No respiratory distress, Breath sounds nml, Other (diminished.) Cardiovascular: positive: Regular rate & rhythm, No gallop, Systolic murmur, Decreased pulse(s) Peripheral Pulses: positive: 0, Other (scant pulses due to polio diability.) Abdomen: positive: Guarding, Abnml bowel sounds, Other (hypoactive bowel sound RUQ and RLQ, firm around naval.) Rectal: positive: Enlarged prostate Skin: positive: No rash, Warm, Dry, Pallor Extremities: positive: Non-tender, Pedal edema, Joint swelling, Other (BLE atrophic, deformed, cool.) Neurologic/Psychiatric: positive: Oriented x3, CN's nml (2-12), Motor nml, Sensation nml, Depressed mood/affect Reflexes: Bicep (R): 2+, Bicep (L): 2+ Conclusion/Plan - Problem List (1) Diverticulitis of gastrointestinal tract Conclusion/Plan: Patient was admitted to [facility] from 04/11-04/16 for GI bleeding. A hepatic flexure diverticular bleed status post coil embolization was performed. Patient potentially had ischemic bowel. Patient presented to our ED with moderate to severe low abdominal pain, so suspected diverticulitis. An abdominal CT was performed to confirm. Plan: Treat with IV antibiotics and monitor labs. (2) HTN (hypertension) Conclusion/Plan: Patient has a history of this and CAD. He is post 7 coronary stents. Last B/P was 152/86. 1/ dose of losartan was resumed due to potential blood loss. Plan: Monitor vital signs. Qualifiers: Hypertension type: essential hypertension Qualified Code(s): I10 - Essential (primary) hypertension (3) Urinary retention Conclusion/Plan: Patient has a long history of a neurogenic bladder related to his ongoing polio. On CT, his bladder was noted to be distended. Plan: Continue flomax and proscar. Monitor I/O's. Allow commode use. (4) Anemia due to blood loss, acute Conclusion/Plan: Patient was advised to take daily iron orally upon discharge from [facility]. Patient admits to not starting this due to having ongoing abdominal pain. Hemoglobin was 8.8 on admission. When patient was discharged from [place] his last H/H was 7.2, 31.5. Plan: Iron infusion IV ordered and will plan to prescribe PO form on discharge. We will continue to monitor CBCs. - Lab Results Lab results reviewed: Yes Fish Bones: 04/19/17 04:50 04/19/17 04:50 - Diagnostic Imaging Results Diagnostic Imaging Results: positive: Final report reviewed Diagnostic Imaging Results Comments: EXAM: CT/ABPEW EXAM: CT ABDOMEN AND PELVIS EXAM DATE: 04/17/2017 01:37 AM. CLINICAL HISTORY: Recent abdominal surgery and GI bleed, abdominal pain. COMPARISONS: 02/27/2017. TECHNIQUE: Routine helical CT imaging was performed through the abdomen and pelvis. IV contrast: Yes Enteric contrast: No . Reconstructions: Coronal and sagittal. In accordance with CT protocol optimization, one or more of the following dose reduction techniques were utilized for this exam: automated exposure control, adjustment of mA and/or KV based on patient size, or use of iterative reconstructive technique. FINDINGS: Lung Bases: Severe coronary calcifications. Small hiatal hernia with note of prior Ainka. Liver: Unremarkable. No suspicious masses. Gallbladder/Bile Ducts: Unremarkable. Spleen: Unremarkable. Pancreas: Unremarkable. Adrenal Glands: Unremarkable. Kidneys: Mild bilateral back pressure hydronephrosis to the level of the quite distended urinary bladder. No renal masses seen. Peritoneal Cavity/Bowel: Severe colonic diverticulosis. Evidence of mild inflammation involving hepatic flexure of the colon. No gross perforation or abscess. No mass seen. Pelvic Organs: Severely distended trabeculated urinary bladder. Posterior left bladder diverticulum again noted. Prostate mildly enlarged. Vasculature: No aneurysms or other significant abnormality. Bones: No significant abnormality. Other: Muscle atrophy, left worse than right. IMPRESSION: 1. Inflamed hepatic flexure of the colon, likely diverticulitis given patient's severe diffuse diverticular disease. Focal nonspecific colitis within differential. No pericolonic abscess seen. 2. Quite distended urinary bladder with back pressure hydroureteronephrosis. Suspect acute on chronic bladder outlet obstruction. Consider Angel catheterization. 3. Severe coronary calcifications. 4. Small hiatal hernia with note of prior Anika. - EKG Results EKG Interpreted Independently: Yes EKG Comparison: Unchanged from prior EKG Core Measures - Anticipated LOS I expect patient to be DC'd or transferred within 96 hours.: Yes - DVT/VTE - Prophylaxis VTE/DVT Device ordered at admit?: Yes VTE/DVT Prophylaxis med ordered at admit?: No Not Ordered - Medical Reason: Contraindicated - Stroke - Rehab Assessment Rehab services assessment to be ordered?: No Not Ordered - Medical Reason: Contraindicated - AMI - Statin at Admit Aspirin Prescribed on Admit: Yes
[2017-04-18] MEDS: HYDROmorphone 1 MG/ML SYRINGE IVP PRN (15:58)
[2017-04-18] MEDS: ERTAPENEM 1 GM in SODIUM CHLORIDE 0.9% MINIBAG 100 ML IV SCH (17:06)
[2017-04-18] MEDS: LOSARTAN 50 MG TABLET PO SCH (18:09)
[2017-04-18] MEDS: NS W/20 MEQ KCL 1,000 ML IV SCH (18:10)
[2017-04-18] MEDS ORDERED: IRON SUCROSE 200 MG in SODIUM CHLORIDE 0.9% 100ML 100 ML IV ONE (18:13)
[2017-04-18] MEDS: PANTOPRAZOLE 40 MG VIAL IVP SCH (21:06)
[2017-04-18] MEDS: SODIUM CHLORIDE FLUSH 0.9% 10 ML SYRINGE IVP SCH (21:06)
[2017-04-18] MEDS: ZOLPIDEM 5 MG TABLET PO PRN (21:16)
[2017-04-19] MEDS: HYDROmorphone 1 MG/ML SYRINGE IVP PRN ×6 (01:50→22:35)
[2017-04-19] MEDS: NS W/20 MEQ KCL 1,000 ML IV SCH ×2 (04:46→22:30)
[2017-04-19 05:21] LABS: BASOPHILS % (AUTO) 0.5 %; EOSINOPHILS # (AUTO) 0.1 10^3/uL (0.0-0.7); EOSINOPHILS % (AUTO) 1.9 %; HGB - HEMOGLOBIN 7.4 g/dL (14.0-18.0); LYMPHOCYTES # (AUTO) 0.7 10^3/uL (1.5-3.5); LYMPHOCYTES % (AUTO) 9.5 %; MEAN CORPUSCULAR HGB CONC 32.4 g/dL (32.0-36.0); MEAN CORPUSCULAR VOLUME 92.6 fL (80.0-94.0); MEAN PLATELET VOLUME 6.8 fL (7.4-11.4); MONOCYTES # (AUTO) 0.4 10^3/uL (0.0-1.0); MONOCYTES % (AUTO) 5.6 %; NEUTROPHILS # (AUTO) 5.9 10^3/uL (1.5-6.6); NEUTROPHILS % (AUTO) 82.5 %; PLT - PLATELET COUNT 362 10^3/uL (130-450); RED BLOOD COUNT 2.47 10^6/uL (4.70-6.10); RED CELL DISTRIBUTION WIDTH 17.5 % (12.0-15.0); WHITE BLOOD COUNT 7.2 x10^3/uL (4.8-10.8)
[2017-04-19 05:31] LABS: ALBUMIN 2.3 g/dL (3.2-5.5); ALBUMIN/GLOBULIN RATIO 0.8 (1.0-2.2); BILIRUBIN,TOTAL 0.6 mg/dL (0.2-1.0); CALCIUM 7.5 mg/dL (8.5-10.3); CREATININE 0.5 mg/dL (0.6-1.2); TOTAL PROTEIN 5.1 g/dL (6.7-8.2)
[2017-04-19] MEDS: SODIUM CHLORIDE FLUSH 0.9% 10 ML SYRINGE IVP SCH ×3 (05:46→19:09)
[2017-04-19] MEDS: ACETAMINOPHEN 325 MG TABLET PO PRN (07:44)
--- NOTE | 2017-04-19 08:09 | PROVIDER PROGRESS NOTE ---
Subjective - Prog Note Date Prog Note Date: 04/19/17 Prog Note Time: 08:08 - Subjective Pt reports feeling: No change Subjective: Wilian (FRANK) admits to sleeping well and is very pleased with being in this hospital. He denies SOB, chest pain, N/V or a new cough. He wishes to advance his diet since the clear liquids are going well. Current Medications - Current Medications Current Medications: Active Medications Acetaminophen (Tylenol) 650 mg PO Q4HR PRN PRN Reason: Pain 1 to 4 Last Admin: 04/19/17 07:44 Dose: 650 mg Finasteride (Proscar) 5 mg PO DAILY [facility] Last Admin: 04/19/17 08:18 Dose: 5 mg Hydromorphone HCl (Dilaudid Inj Syringe) 1 mg IVP Q2H PRN PRN Reason: Pain 8 to 10 Last Admin: 04/19/17 07:46 Dose: 1 mg Ertapenem 1 gm/ Sodium (Chloride) 100 mls @ 200 mls/hr IV Q24H [facility] Last Infusion: 04/18/17 17:45 Dose: Infused Potassium Chloride/Sodium Chloride (Normal Saline 0.9% W/20 Meq Kcl) 1,000 mls @ 83.333 mls/hr IV .Q12H [facility] Last Infusion: 04/19/17 07:01 Dose: 83.333 mls/hr Losartan Potassium (Cozaar) 50 mg PO DAILY [facility] Last Admin: 04/19/17 08:18 Dose: 50 mg Pantoprazole Sodium (Protonix) 40 mg IVP BID [facility] Last Admin: 04/19/17 08:19 Dose: 40 mg Polyethylene Glycol (Miralax) 17 gm PO DAILY [facility] Last Admin: 04/19/17 08:17 Dose: 17 gm Sodium Chloride (Normal Saline Flush 0.9%) 10 ml IVP PRN PRN PRN Reason: NEEDED PER PROVIDER ORDERS Sodium Chloride (Normal Saline Flush 0.9%) 10 ml IVP Q8HR [facility] Last Admin: 04/19/17 05:46 Dose: Not Given Sodium Chloride ([place]) 2 sprays YESI Q4HR PRN PRN Reason: Nasal Congestion Tamsulosin HCl (Flomax) 0.4 mg PO DAILY [facility] Last Admin: 04/19/17 08:18 Dose: 0.4 mg Zolpidem Tartrate (Ambien) 5 mg PO QPM PRN PRN Reason: Insomnia Last Admin: 04/18/17 21:16 Dose: 5 mg Pantoprazole [Protonix] 40 mg ORAL BID 12/07/15 Losartan [Cozaar] 100 mg PO DAILY 04/09/17 Finasteride [Finasteride] 5 mg PO DAILY 04/18/17 Zolpidem Tartrate [Zolpidem Tartrate] 5 mg PO QPM PRN 04/18/17 Objective - Vital Signs/Intake & Output Reviewed Vital Signs: Yes Intake & Output: Intake & Output 04/16/17 04/17/17 04/18/17 04/19/17 23:59 23:59 23:59 23:59 Intake Total 1432.5 1437.499 Output Total 550 1200 Balance 882.5 237.499 - Objective General Appearance: positive: No acute distress, Alert Eyes Bilateral: positive: Normal inspection ENT: positive: ENT inspection nml, Pharynx nml, No signs of dehydration Neck: positive: Nml inspection, Thyroid nml, No JVD Respiratory: positive: Chest non-tender, No respiratory distress, Breath sounds nml Cardiovascular: positive: Regular rate & rhythm, No gallop, Systolic murmur, Decreased pulse(s) Peripheral Pulses: 1+ Radial (R), 1+ Radial (L) Abdomen: positive: Tenderness, Guarding, Abnml bowel sounds, Other (firm mid- abdomen.) Back: positive: Nml inspection Skin: positive: No rash, Warm, Dry, Pallor Extremities: positive: Non-tender, Full ROM, Nml appearance, Pedal edema, Joint swelling, Other (BLE atrophy d/t polio) Neurologic/Psychiatric: positive: Oriented x3, CN's nml (2-12), Motor nml, Sensation nml, Depressed mood/affect Reflexes: Bicep (R): 2+, Bicep (L): 2+ - Lab Results Fish Bones: 04/19/17 16:05 04/19/17 04:50 Other Labs: Lab Results x24hrs 04/19/17 04/19/17 Range/Units 04:50 04:50 WBC 7.2 (4.8-10.8) x10^3/uL RBC 2.47 L (4.70-6.10) 10^6/uL Hgb 7.4 L (14.0-18.0) g/dL Hct 22.8 L (42.0-52.0) % MCV 92.6 (80.0-94.0) fL MCH 30.0 (27.0-31.0) pg MCHC 32.4 (32.0-36.0) g/dL RDW 17.5 H (12.0-15.0) % Plt Count 362 (130-450) 10^3/uL MPV 6.8 L (7.4-11.4) fL Neut # 5.9 (1.5-6.6) 10^3/uL Lymph # 0.7 L (1.5-3.5) 10^3/uL Cobb # 0.4 (0.0-1.0) 10^3/uL Eos # 0.1 (0.0-0.7) 10^3/uL Baso # 0.0 (0.0-0.1) 10^3/uL Absolute Nucleated RBC 0.00 x10^3/uL Nucleated RBC % 0.0 /100WBC Sodium 134 L (135-145) mmol/L Potassium 3.3 L (3.5-5.0) mmol/L Chloride 101 (101-111) mmol/L Carbon Dioxide 26 (21-32) mmol/L Anion Gap 7.0 (6-13) BUN 5 L (6-20) mg/dL Creatinine 0.5 L (0.6-1.2) mg/dL Estimated GFR (MDRD) 166 (>89) Glucose 115 H (70-100) mg/dL Calcium 7.5 L (8.5-10.3) mg/dL Total Bilirubin 0.6 (0.2-1.0) mg/dL AST 15 (10-42) IU/L ALT 16 (10-60) IU/L Alkaline Phosphatase 53 (42-121) IU/L Total Protein 5.1 L (6.7-8.2) g/dL Albumin 2.3 L (3.2-5.5) g/dL Globulin 2.8 (2.1-4.2) g/dL Albumin/Globulin Ratio 0.8 L (1.0-2.2) - Diagnostic Imaging Diagnostic Imaging Results: positive: Final report reviewed Assessment/Plan - Problem List (1) Anemia due to blood loss, acute Impression: Patient was advised to take daily iron orally upon discharge from [facility]. Patient admits to not starting this due to having ongoing abdominal pain. Hemoglobin was 8.8 on admission. When patient was discharged from [facility] his last H/H was 7.2, 31.5. Plan: Iron infusion IV ordered and will plan to prescribe PO form on discharge. We will continue to monitor CBCs. (2) HTN (hypertension) Impression: Patient has a history of this and CAD. He is post 7 coronary stents. Last B/P was 119/68. / dose of losartan was resumed due to potential blood loss. Plan: Monitor vital signs. Qualifiers: Hypertension type: essential hypertension Qualified Code(s): I10 - Essential (primary) hypertension (3) Diverticulitis of gastrointestinal tract Impression: Patient was admitted to [facility] from 04/11-04/16 for GI bleeding. A hepatic flexure diverticular bleed status post coil embolization was performed. Patient potentially had ischemic bowel. Patient presented to our ED with moderate to severe low abdominal pain, so suspected diverticulitis. An abdominal CT was performed to confirm. This case was review with general surgery in the event the patient becomes unstable. Plan: Treat with IV antibiotics and monitor labs. (4) Neurogenic bladder disorder Impression: Patient has a long history of a neurogenic bladder related to his ongoing polio. On CT, his bladder was noted to be distended above the level of the navel. Recommended an indwelling toussaint catheter, but patient refused. He states that this has been going on for several years and he sees a urologist who is aware of this. Plans to get a bladder stimulator in the near future per patient. Plan: Continue flomax and proscar. Monitor I/O's. Allow commode use.
[2017-04-19] MEDS: POLYETHYLENE GLYCOL 3350 17 GM PACKET PO SCH (08:17)
[2017-04-19] MEDS: FINASTERIDE 5 MG TABLET PO SCH (08:18)
[2017-04-19] MEDS: LOSARTAN 50 MG TABLET PO SCH (08:18)
[2017-04-19] MEDS: TAMSULOSIN 0.4 MG CAPSULE PO SCH (08:18)
[2017-04-19] MEDS: PANTOPRAZOLE 40 MG VIAL IVP SCH ×2 (08:19→19:09)
[2017-04-19] MEDS ORDERED: SODIUM CHLORIDE 0.65% NASAL SPRAY NAS PRN (09:22)
[2017-04-19] MEDS ORDERED: IRON SUCROSE 200 MG in SODIUM CHLORIDE 0.9% 100ML 100 ML IV ONE (09:23)
[2017-04-19] MEDS ORDERED: POTASSIUM CHLORIDE INJ 40 MEQ in SODIUM CHLORIDE 0.9% 480 ML IV ONE (11:18)
[2017-04-19] MEDS: SENNA 8.6 MG TABLET PO SCH (11:51)
[2017-04-19 16:15] LABS: HGB - HEMOGLOBIN 7.9 g/dL (14.0-18.0)
[2017-04-19] MEDS: ERTAPENEM 1 GM in SODIUM CHLORIDE 0.9% MINIBAG 100 ML IV SCH (17:39)
[2017-04-19] MEDS: ZOLPIDEM 5 MG TABLET PO PRN (19:08)
[2017-04-20] MEDS: HYDROmorphone 1 MG/ML SYRINGE IVP PRN (01:51)
[2017-04-20 05:38] LABS: BASOPHILS # (AUTO) 0.1 10^3/uL (0.0-0.1); BASOPHILS % (AUTO) 0.8 %; EOSINOPHILS # (AUTO) 0.3 10^3/uL (0.0-0.7); EOSINOPHILS % (AUTO) 3.2 %; HGB - HEMOGLOBIN 7.6 g/dL (14.0-18.0); LYMPHOCYTES # (AUTO) 0.8 10^3/uL (1.5-3.5); LYMPHOCYTES % (AUTO) 9.7 %; MEAN CORPUSCULAR HEMOGLOBIN 29.7 pg (27.0-31.0); MEAN CORPUSCULAR HGB CONC 32.1 g/dL (32.0-36.0); MEAN CORPUSCULAR VOLUME 92.7 fL (80.0-94.0); MEAN PLATELET VOLUME 6.7 fL (7.4-11.4); MONOCYTES # (AUTO) 0.5 10^3/uL (0.0-1.0); MONOCYTES % (AUTO) 6.1 %; NEUTROPHILS # (AUTO) 6.2 10^3/uL (1.5-6.6); NEUTROPHILS % (AUTO) 80.2 %; PLT - PLATELET COUNT 404 10^3/uL (130-450); RED BLOOD COUNT 2.56 10^6/uL (4.70-6.10); RED CELL DISTRIBUTION WIDTH 17.9 % (12.0-15.0); WHITE BLOOD COUNT 7.8 x10^3/uL (4.8-10.8)
[2017-04-20 05:53] LABS: ALBUMIN 2.3 g/dL (3.2-5.5); ALBUMIN/GLOBULIN RATIO 0.8 (1.0-2.2); ALKALINE PHOSPHATASE 57 IU/L (42-121); ALT ALANINE AMINOTRANSFERASE 18 IU/L (10-60); AST ASPARTATE AMINOTRANSFERASE 18 IU/L (10-42); BILIRUBIN,TOTAL 0.4 mg/dL (0.2-1.0); BUN - BLOOD UREA NITROGEN < 5 mg/dL (6-20); CALCIUM 7.8 mg/dL (8.5-10.3); CARBON DIOXIDE - CO2 25 mmol/L (21-32); CHLORIDE 100 mmol/L (101-111); CREATININE 0.4 mg/dL (0.6-1.2); GFR - MDRD 215 (>89); GLUCOSE 109 mg/dL (70-100); SODIUM 135 mmol/L (135-145); TOTAL PROTEIN 5.2 g/dL (6.7-8.2)
[2017-04-20] MEDS: SODIUM CHLORIDE FLUSH 0.9% 10 ML SYRINGE IVP SCH ×3 (06:13→18:58)
[2017-04-20] MEDS: TAMSULOSIN 0.4 MG CAPSULE PO SCH (08:18)
[2017-04-20] MEDS: LOSARTAN 50 MG TABLET PO SCH (08:18)
[2017-04-20] MEDS: ACETAMINOPHEN 325 MG TABLET PO PRN (08:18)
[2017-04-20] MEDS: FINASTERIDE 5 MG TABLET PO SCH (08:19)
[2017-04-20] MEDS: POLYETHYLENE GLYCOL 3350 17 GM PACKET PO SCH (08:19)
[2017-04-20] MEDS: PANTOPRAZOLE 40 MG VIAL IVP SCH ×2 (08:20→22:14)
[2017-04-20] MEDS: SENNA 8.6 MG TABLET PO SCH (08:21)
[2017-04-20] MEDS: NS W/20 MEQ KCL 1,000 ML IV SCH (10:40)
[2017-04-20] MEDS ORDERED: HYDROmorphone 1 MG/ML SYRINGE IVP PRN (11:28)
[2017-04-20] MEDS: SACCHAROMYCES BOULARDII 250 MG CAPSULE PO SCH ×2 (13:38→16:15)
[2017-04-20] MEDS ORDERED: ACETAMINOPHEN 325 MG TABLET PO SCH (15:59)
[2017-04-20] MEDS ORDERED: FUROSEMIDE 20 MG/2 ML VIAL IVP PRN (15:59)
--- NOTE | 2017-04-20 15:59 | PROVIDER PROGRESS NOTE ---
Subjective - Prog Note Date Prog Note Date: 04/20/17 Prog Note Time: 09:00 - Subjective Pt reports feeling: Improved Subjective: Patient had no complaints early this AM during his exam, but called me back to his room due to complaints of ongoing fatigue, low energy and feeling sleepy for much of today. He denies SOB, chest pain, N/V or a new cough. Plans to infuse 2 units PRBCs. Current Medications - Current Medications Current Medications: Active Medications Acetaminophen (Tylenol) 650 mg PO Q4HR PRN PRN Reason: Pain 1 to 4 Last Admin: 04/20/17 08:18 Dose: 650 mg Ferrous Sulfate (Feosol) 325 mg PO BIDWM [facility] Finasteride (Proscar) 5 mg PO DAILY [facility] Last Admin: 04/20/17 08:19 Dose: 5 mg Hydromorphone HCl (Dilaudid Inj Syringe) 1 mg IVP Q4H PRN PRN Reason: Pain 8 to 10 Ertapenem 1 gm/ Sodium (Chloride) 100 mls @ 200 mls/hr IV Q24H [facility] Last Infusion: 04/19/17 18:11 Dose: Infused Losartan Potassium (Cozaar) 50 mg PO DAILY [facility] Last Admin: 04/20/17 08:18 Dose: 50 mg Oxycodone/Acetaminophen (Percocet 5 Mg/325 Mg) 1 tab PO Q4HR PRN PRN Reason: PAIN Pantoprazole Sodium (Protonix) 40 mg IVP BID [facility] Last Admin: 04/20/17 08:20 Dose: 40 mg Polyethylene Glycol (Miralax) 17 gm PO DAILY [facility] Last Admin: 04/20/17 08:19 Dose: 17 gm Saccharomyces Boulardii (Florastor) 500 mg PO BIDWM [facility] Last Admin: 04/20/17 13:38 Dose: 500 mg Senna (Senokot) 8.6 mg PO DAILY [facility] Last Admin: 04/20/17 08:21 Dose: Not Given Sodium Chloride (Normal Saline Flush 0.9%) 10 ml IVP PRN PRN PRN Reason: NEEDED PER PROVIDER ORDERS Sodium Chloride (Normal Saline Flush 0.9%) 10 ml IVP Q8HR [facility] Last Admin: 04/20/17 13:39 Dose: 10 ml Sodium Chloride (Nye) 2 sprays YESI Q4HR PRN PRN Reason: Nasal Congestion Last Admin: 04/19/17 12:09 Dose: 1 spr Tamsulosin HCl (Flomax) 0.4 mg PO DAILY [facility] Last Admin: 04/20/17 08:18 Dose: 0.4 mg Zolpidem Tartrate (Ambien) 5 mg PO QPM PRN PRN Reason: Insomnia Last Admin: 04/19/17 19:08 Dose: 5 mg Pantoprazole [Protonix] 40 mg ORAL BID 12/07/15 Losartan [Cozaar] 100 mg PO DAILY 04/09/17 Finasteride [Finasteride] 5 mg PO DAILY 04/18/17 Zolpidem Tartrate [Zolpidem Tartrate] 5 mg PO QPM PRN 04/18/17 Objective - Vital Signs/Intake & Output Reviewed Vital Signs: Yes Vital Signs: Vital Signs x48h Temp Pulse Resp BP Pulse Ox 04/20/17 15:24 36.8 C 92 16 130/81 H 100 04/20/17 08:00 36.9 C 88 20 149/70 H 100 Intake & Output: Intake & Output 04/17/17 04/18/17 04/19/17 04/20/17 23:59 23:59 23:59 23:59 Intake Total 1432.5 4065.000 1849.444 Output Total 550 2600 Balance 882.5 4589.229 5580.444 - Objective General Appearance: positive: No acute distress, Alert, Lethargic Eyes Bilateral: positive: Normal inspection, PERRL ENT: positive: ENT inspection nml, Pharynx nml, Dry mucous membranes Neck: positive: Nml inspection, Thyroid nml, No JVD, Stiff neck Respiratory: positive: Chest non-tender, No respiratory distress, Breath sounds nml, Other (diminished.) Cardiovascular: positive: No gallop, Irregularly irregular, Systolic murmur, Decreased pulse(s) Peripheral Pulses: 1+ Radial (R), 1+ Radial (L) Abdomen: positive: No organomegaly, No distention, Other (firmness mid abdomen- likely his bladder.) Skin: positive: No rash, Warm, Dry, Pallor Extremities: positive: Non-tender, Full ROM, No pedal edema Neurologic/Psychiatric: positive: Oriented x3, CN's nml (2-12), Motor nml, Sensation nml, Depressed mood/affect Reflexes: Bicep (R): 2+, Bicep (L): 2+ - Lab Results Fish Bones: 04/20/17 05:14 04/20/17 05:14 Other Labs: Lab Results x24hrs 04/20/17 04/20/17 04/19/17 Range/Units 05:14 05:14 16:05 WBC 7.8 (4.8-10.8) x10^3/uL RBC 2.56 L (4.70-6.10) 10^6/uL Hgb 7.6 L (14.0-18.0) g/dL Hct 23.7 L (42.0-52.0) % MCV 92.7 (80.0-94.0) fL MCH 29.7 (27.0-31.0) pg MCHC 32.1 (32.0-36.0) g/dL RDW 17.9 H (12.0-15.0) % Plt Count 404 (130-450) 10^3/uL MPV 6.7 L (7.4-11.4) fL Neut # 6.2 (1.5-6.6) 10^3/uL Lymph # 0.8 L (1.5-3.5) 10^3/uL [place] # 0.5 (0.0-1.0) 10^3/uL Eos # 0.3 (0.0-0.7) 10^3/uL Baso # 0.1 (0.0-0.1) 10^3/uL Absolute Nucleated RBC 0.01 x10^3/uL Nucleated RBC % 0.1 /100WBC Sodium 135 (135-145) mmol/L Potassium 4.0 (3.5-5.0) mmol/L Chloride 100 L (101-111) mmol/L Carbon Dioxide 25 (21-32) mmol/L Anion Gap 10.0 (6-13) BUN < 5 L (6-20) mg/dL Creatinine 0.4 L (0.6-1.2) mg/dL Estimated GFR (MDRD) 215 (>89) Glucose 109 H (70-100) mg/dL Calcium 7.8 L (8.5-10.3) mg/dL Magnesium 2.0 2.0 (1.7-2.8) mg/dL Total Bilirubin 0.4 (0.2-1.0) mg/dL AST 18 (10-42) IU/L ALT 18 (10-60) IU/L Alkaline Phosphatase 57 (42-121) IU/L Total Protein 5.2 L (6.7-8.2) g/dL Albumin 2.3 L (3.2-5.5) g/dL Globulin 2.9 (2.1-4.2) g/dL Albumin/Globulin Ratio 0.8 L (1.0-2.2) 04/19/17 Range/Units 16:05 WBC (4.8-10.8) x10^3/uL RBC (4.70-6.10) 10^6/uL Hgb 7.9 L (14.0-18.0) g/dL Hct 24.2 L (42.0-52.0) % MCV (80.0-94.0) fL MCH (27.0-31.0) pg MCHC (32.0-36.0) g/dL RDW (12.0-15.0) % Plt Count (130-450) 10^3/uL MPV (7.4-11.4) fL Neut # (1.5-6.6) 10^3/uL Lymph # (1.5-3.5) 10^3/uL [place] # (0.0-1.0) 10^3/uL Eos # (0.0-0.7) 10^3/uL Baso # (0.0-0.1) 10^3/uL Absolute Nucleated RBC x10^3/uL Nucleated RBC % /100WBC Sodium (135-145) mmol/L Potassium (3.5-5.0) mmol/L Chloride (101-111) mmol/L Carbon Dioxide (21-32) mmol/L Anion Gap (6-13) BUN (6-20) mg/dL Creatinine (0.6-1.2) mg/dL Estimated GFR (MDRD) (>89) Glucose (70-100) mg/dL Calcium (8.5-10.3) mg/dL Magnesium (1.7-2.8) mg/dL Total Bilirubin (0.2-1.0) mg/dL AST (10-42) IU/L ALT (10-60) IU/L Alkaline Phosphatase (42-121) IU/L Total Protein (6.7-8.2) g/dL Albumin (3.2-5.5) g/dL Globulin (2.1-4.2) g/dL Albumin/Globulin Ratio (1.0-2.2) - Diagnostic Imaging Diagnostic Imaging Results: positive: Final report reviewed Assessment/Plan - Problem List (1) Anemia due to blood loss, acute Impression: Patient was advised to take daily iron orally upon discharge from [facility]. Patient admits to not starting this due to having ongoing abdominal pain. Hemoglobin was 8.8 on admission. When patient was discharged from [facility] his last H/H was 7.2, 31.5. Iron infusion IV was completed and will plan to prescribe PO form on discharge. Patient complains of low energy and being tired all day. Hemoglobin today was about the same at just 7.6 today. Plan: Orders for type and screen; 2 units PRBCs ordered. We will continue to monitor CBCs. (2) HTN (hypertension) Impression: Patient has a history of this and CAD. He is post 7 coronary stents. Last B/P was 130/81. 1/2 dose of losartan was resumed due to potential blood loss. Plan: Monitor vital signs. Qualifiers: Hypertension type: essential hypertension Qualified Code(s): I10 - Essential (primary) hypertension (3) Diverticulitis of gastrointestinal tract Impression: Patient was admitted to [facility] from 04/11-04/16 for GI bleeding. A hepatic flexure diverticular bleed status post coil embolization was performed. Patient potentially had ischemic bowel. Patient presented to our ED with moderate to severe low abdominal pain, so suspected diverticulitis. An abdominal CT was performed to confirm. This case was review with general surgery in the event the patient becomes unstable. Plan: Treat with IV antibiotics and monitor labs. (4) Neurogenic bladder disorder Impression: Patient has a long history of a neurogenic bladder related to his ongoing polio. On CT, his bladder was noted to be distended above the level of the navel. Recommended an indwelling toussaint catheter, but patient refused. I have spent several minutes on this topic each day, reassurance with using lidocaine jelly for the insertion, and explaining the potential risks by leaving his bladder extremely full. Patient continues to refuse. He states that this has been going on for several years and he sees a urologist who is aware of this. Plans to get a bladder stimulator in the near future per patient. Plan: Continue flomax and proscar. Monitor I/O's. Allow commode use.
[2017-04-20] MEDS ORDERED: SODIUM CHLORIDE 0.9% 1,000 ML IV SCH (16:00)
[2017-04-20] MEDS ORDERED: diphenhydrAMINE 25 MG CAPSULE PO SCH (16:00)
[2017-04-20] MEDS: FERROUS SULFATE 325 MG TABLET PO SCH (16:15)
[2017-04-20] MEDS: ERTAPENEM 1 GM in SODIUM CHLORIDE 0.9% MINIBAG 100 ML IV SCH (18:08)
[2017-04-20] MEDS: SODIUM CHLORIDE FLUSH 0.9% 10 ML SYRINGE IVP PRN ×2 (18:58→22:16)
[2017-04-20] MEDS: ZOLPIDEM 5 MG TABLET PO PRN (20:34)
[2017-04-20] MEDS ORDERED: ZOLPIDEM 5 MG TABLET PO PRN (23:29)
[2017-04-21] MEDS: SODIUM CHLORIDE FLUSH 0.9% 10 ML SYRINGE IVP SCH ×3 (01:51→13:04)
[2017-04-21] MEDS: SODIUM CHLORIDE FLUSH 0.9% 10 ML SYRINGE IVP PRN (01:52)
[2017-04-21 05:13] LABS: BASOPHILS # (AUTO) 0.1 10^3/uL (0.0-0.1); BASOPHILS % (AUTO) 0.8 %; EOSINOPHILS # (AUTO) 0.3 10^3/uL (0.0-0.7); EOSINOPHILS % (AUTO) 3.9 %; HGB - HEMOGLOBIN 10.3 g/dL (14.0-18.0); LYMPHOCYTES # (AUTO) 0.8 10^3/uL (1.5-3.5); LYMPHOCYTES % (AUTO) 12.5 %; MEAN CORPUSCULAR HEMOGLOBIN 30.1 pg (27.0-31.0); MEAN CORPUSCULAR HGB CONC 33.6 g/dL (32.0-36.0); MEAN CORPUSCULAR VOLUME 89.5 fL (80.0-94.0); MEAN PLATELET VOLUME 6.6 fL (7.4-11.4); MONOCYTES # (AUTO) 0.5 10^3/uL (0.0-1.0); NEUTROPHILS # (AUTO) 5.1 10^3/uL (1.5-6.6); NEUTROPHILS % (AUTO) 75.8 %; PLT - PLATELET COUNT 390 10^3/uL (130-450); RED BLOOD COUNT 3.44 10^6/uL (4.70-6.10); RED CELL DISTRIBUTION WIDTH 16.8 % (12.0-15.0); WHITE BLOOD COUNT 6.7 x10^3/uL (4.8-10.8)
[2017-04-21 05:22] LABS: ALBUMIN 2.4 g/dL (3.2-5.5); ALBUMIN/GLOBULIN RATIO 0.8 (1.0-2.2); ALKALINE PHOSPHATASE 60 IU/L (42-121); ALT ALANINE AMINOTRANSFERASE 21 IU/L (10-60); AST ASPARTATE AMINOTRANSFERASE 18 IU/L (10-42); BILIRUBIN,TOTAL 1.2 mg/dL (0.2-1.0); BUN - BLOOD UREA NITROGEN < 5 mg/dL (6-20); CALCIUM 7.9 mg/dL (8.5-10.3); CARBON DIOXIDE - CO2 24 mmol/L (21-32); CHLORIDE 103 mmol/L (101-111); CREATININE 0.5 mg/dL (0.6-1.2); GFR - MDRD 166 (>89); GLUCOSE 103 mg/dL (70-100); MAGNESIUM 1.9 mg/dL (1.7-2.8); SODIUM 135 mmol/L (135-145); TOTAL PROTEIN 5.3 g/dL (6.7-8.2)
[2017-04-21] MEDS: POLYETHYLENE GLYCOL 3350 17 GM PACKET PO SCH (08:15)
[2017-04-21] MEDS: FINASTERIDE 5 MG TABLET PO SCH (08:34)
[2017-04-21] MEDS: FERROUS SULFATE 325 MG TABLET PO SCH (08:34)
[2017-04-21] MEDS: oxyCOD/ACETAMIN 5 MG/325 MG TABLET PO PRN ×2 (08:34→14:02)
[2017-04-21] MEDS: TAMSULOSIN 0.4 MG CAPSULE PO SCH (08:34)
[2017-04-21] MEDS: LOSARTAN 50 MG TABLET PO SCH (08:34)
[2017-04-21] MEDS: PANTOPRAZOLE 40 MG VIAL IVP SCH (08:35)
[2017-04-21] MEDS: SACCHAROMYCES BOULARDII 250 MG CAPSULE PO SCH (08:39)
[2017-04-21] MEDS: SENNA 8.6 MG TABLET PO SCH (10:02)
[2017-04-21 10:47] VITALS: BP 129/91
--- NOTE | 2017-04-21 12:14 | Discharge Plan ---
Discharge Plan Disposition: Home, Self Care Condition: Good Prescriptions: oxyCODONE/ACET 5/325 [Percocet 5 mg/325 mg] 1 tab PO Q4HR PRN #20 tablet PRN Reason: Pain Ferrous Sulfate 325 mg PO BID #60 tablet Moxifloxacin [Avelox] 400 mg PO DAILY 10 Days #10 tablet Saccharomyces Boulardii [Florastor] 250 mg PO BID 20 Days #40 capsule Diet: Regular Activity Restrictions: No Restrictions Shower Restrictions: No Driving Restrictions: No Weight Bearing: Full Weight Instruction Topics: Saccharomyces boulardii Florastor oral dosage forms, Moxifloxacin tablets, Diverticulitis Dc Additional Instructions or Follow Up instructions: You were treated for diverticulitis with at least 4 days of IV antibiotics. Our general surgeon was consulted via phone to review management and agreed with plan. You were changed to oral antibiotics with a probiotic; to continue for an additional 10 days at home. For the abdominal pain, you were given a paper-script for narcotics. Get a colonoscopy in about 6 weeks. Your bladder and ureters were grossly enlarged, which requires decompression with the use of a toussaint catheter. I recommend prompt urology follow up for that. Your anemia was not improving on its own, so you were given IV iron, and 2 units of PRBCs. Your last hemoglobin was much improved at 10.3. Continue on ferrous sulfate BID. Please see your PCP within a week. Please see your urologist at your earliest convenience. No Smoking: If you smoke, Please STOP! Call for help. Follow-up with: Jennifer Rodriguez PA-C [Primary Care Provider] -
--- NOTE | 2017-04-21 12:25 | DISCHARGE SUMMARY ---
Discharge Summary Admit Date: 04/18/17 Discharge Date: 04/21/17 Discharging Provider: DENYS Moyer Primary Care Provider: Jennifer Rodriguez Code Status: Do Not Attempt Resuscitation Condition at Discharge: Good Discharge Disposition: 01 Home, Self Care - DIAGNOSES Admission Diagnoses: Diverticulosis of large intestine without perforation or abscess without bleeding (K57.30) Acute blood loss anemia (D62) HTN (hypertension) (I10) Discharge Diagnoses with Status of Each Condition: Acute blood loss anemia (D62) chronic, being treated with oral iron. HTN (hypertension) (I10) chronic, stable. Diverticulitis of gastrointestinal tract (K57.92) ongoing, being treated medically. Neurogenic bladder disorder (N31.9) chronic, refused treatment. - HPI History of Present Illness: Wilian Solo is a 67-year old white male with a past medical history of polio with BLE disabilities, which he uses crutches, urinary retention, enlarged prostate, CAD, post 7 coronary stents, GERD resolved after Dino procedure to repair hiatal hernia, GI bleed, ulcers, diverticulosis, chronic back pain, anxiety, depression, and hypertension. Patient was just discharged on 04/16/[address] [facility] in [place] after a interventional radiology diverticula emboli repair. In regards to that hospital stay, he was on his way to their ED via driving a private car, when he felt the urge to have a BM and pulled over at a rest stop. He had a large frankly blood stool, lost consciousness, and an ambulance transported him urgently to [facility] in [place]. Since being discharged, he has had bilateral lower abdominal pain with no relief. Our ED prescribed Cipro and Flagyl after presenting to the ED just yesterday, but the pain in his lower abdomen did not resolve, so he came back to the ED today. He notes that he has not moved his bowels since 04/15/17. He will be admitted to inpatient for IV antibiotic to treat diverticulitis, pain management and further symptom control. - HOSPITAL COURSE Hospital Course: The following problems/diagnoses were prevalent during this hospital stay: (1) Anemia due to blood loss, acute- Patient was advised to take daily iron orally upon discharge from [facility]. Patient admits to not starting this due to having ongoing abdominal pain. Hemoglobin was 8.8 on admission. When patient was discharged from [place] his last H/H was 7.2, 31.5. Iron infusion IV was completed and will plan to prescribe PO form on discharge. Patient complains of low energy and being tired all day. Hemoglobin was still in the 7 range at 7.6 yesterday, so orders for type and screen; 2 units PRBCs were infused overnight. Hemoglobin improved to 10.3 at the time of discharge. (2) HTN (hypertension)- Patient has a history of this and CAD. He is post 7 coronary stents. Last B/P was 129/91. 1/2 dose of losartan was resumed due to potential blood loss. Vital signs were monitored and patient started to trend back up prior to discharge, so patient is to resume home medications. (3) Diverticulitis of gastrointestinal tract- Patient was admitted to [facility] from 04/11-04/16 for GI bleeding. A hepatic flexure diverticular bleed status post coil embolization was performed. Patient potentially had ischemic bowel. Patient presented to our ED with moderate to severe low abdominal pain, so suspected diverticulitis. An abdominal CT was performed to confirm. This case was review with general surgery in the event the patient becomes unstable. Patient was continued on IV antibiotics, with oral antibiotics prescribed for out patient use, and labs were monitored. (4) Neurogenic bladder disorder- Patient has a long history of a neurogenic bladder related to his ongoing polio. On CT, his bladder was noted to be distended above the level of the navel both from current radiologist, and the previous CT scan read in [place], [place]. This has not been a new problem as evidenced by the grossly enlarged ureters that can be clearly seen on CT. Results were reviewed with patient using a computer in the patient's room and by reviewing imaging. Recommended an indwelling toussaint catheter, but patient refused. I have spent several minutes on this topic each day, reassurance with using lidocaine jelly for the insertion, and explaining the potential risks by leaving his bladder extremely full. Patient continued to refuse when asked, even for a temporary straight cath to simply decompress his bladder. He states that this has been going on for several years and he sees a urologist in [place] who is aware of this. He plans to get a bladder stimulator in the near future per patient report. Patient was continued on flomax and proscar. I /O's were monitored and patient was encouraged to us the commode. Disposition: Patient was discharged home with in stable condition. He did not require oxygen or IVFs. Prescriptions were submitted to the pharmacy of choice. Discussion regarding end of life, and DNR code status were ongoing for this admission. Although his stated, in case of an emergency, she believes we should treat him as a full code. This was stated in front of the patient, who disagreed. Patient remained a DNR throughout his stay. - ALLERGIES Allergies/Adverse Reactions: Allergies Allergy/AdvReac Type Severity Reaction Status Date / Time walnut Allergy Mild Rash Verified 04/19/17 01:45 Penicillins Allergy Unknown Unknown Verified 04/19/17 01:44 - MEDICATIONS Home Medications: Ambulatory Orders Medication Instructions Recorded Confirmed Pantoprazole [Protonix] 40 mg ORAL BID 12/07/15 04/18/17 Aspirin [Aspir-Low] 81 mg PO DAILYWM #30 tablet. 12/09/15 04/18/17 Tamsulosin [Flomax] 0.4 mg PO DAILY #20 capsule 02/28/17 04/18/17 Losartan [Cozaar] 100 mg PO DAILY 04/09/17 04/18/17 Finasteride 5 mg PO DAILY 04/18/17 04/18/17 Zolpidem Tartrate 5 mg PO QPM PRN 04/18/17 04/18/17 Ferrous Sulfate 325 mg PO BID #60 tablet 04/21/17 Moxifloxacin [Avelox] 400 mg PO DAILY 10 Days #10 tablet 04/21/17 Saccharomyces Boulardii [Florastor] 250 mg PO BID 20 Days #40 capsule 04/21/17 oxyCODONE/ACET 5/325 [Percocet 5 1 tab PO Q4HR PRN #20 tablet 04/21/17 mg/325 mg] - PHYSICAL EXAM AT DISCHARGE General Appearance: positive: No acute distress, Alert Eyes Bilateral: positive: Normal inspection, PERRL ENT: positive: ENT inspection nml, Pharynx nml, Dry mucous membranes Neck: positive: Nml inspection, Thyroid nml, No JVD, Trachea midline, Stiff neck Respiratory: positive: Chest non-tender, No respiratory distress, Breath sounds nml Cardiovascular: positive: No murmur, Irregularly irregular, Systolic murmur, Decreased pulse(s) Peripheral Pulses: positive: 1+ (scant) Abdomen: positive: No organomegaly, Nml bowel sounds, No distention, Tenderness (mild discomfort with deep palpation. ) Back: positive: Nml inspection Skin: positive: No rash, Warm, Dry, Pallor Extremities: positive: Non-tender, Pedal edema, Joint swelling, Other (chronic atrophy due to polio) Neurologic/Psychiatric: positive: Oriented x3, CN's nml (2-12), Motor nml, Sensation nml, Depressed mood/affect Reflexes: Bicep (R): 3+, Bicep (L): 3+ - LABS Result Diagrams: 04/21/17 04:27 04/21/17 04:27 - DIAGNOSTIC IMAGING Diagnostic Imaging Results: Final report reviewed Diagnostic Imaging Results Comments: EXAM: CT ABDOMEN AND PELVIS EXAM DATE: 04/17/2017 01:37 AM. CLINICAL HISTORY: Recent abdominal surgery and GI bleed, abdominal pain. COMPARISONS: 02/27/2017. TECHNIQUE: Routine helical CT imaging was performed through the abdomen and pelvis. IV contrast: Yes . Enteric contrast: No . Reconstructions: Coronal and sagittal. In accordance with CT protocol optimization, one or more of the following dose reduction techniques were utilized for this exam: automated exposure control, adjustment of mA and/or KV based on patient size, or use of iterative reconstructive technique. FINDINGS: Lung Bases: Severe coronary calcifications. Small hiatal hernia with note of prior Anika. Liver: Unremarkable. No suspicious masses. Gallbladder/Bile Ducts: Unremarkable. Spleen: Unremarkable. Pancreas: Unremarkable. Adrenal Glands: Unremarkable. Kidneys: Mild bilateral back pressure hydronephrosis to the level of the quite distended urinary bladder. No renal masses seen. Peritoneal Cavity/Bowel: Severe colonic diverticulosis. Evidence of mild inflammation involving hepatic flexure of the colon. No gross perforation or abscess. No mass seen. Pelvic Organs: Severely distended trabeculated urinary bladder. Posterior left bladder diverticulum again noted. Prostate mildly enlarged. Vasculature: No aneurysms or other significant abnormality. Bones: No significant abnormality. Other: Muscle atrophy, left worse than right. IMPRESSION: 1. Inflamed hepatic flexure of the colon, likely diverticulitis given patient's severe diffuse diverticular disease. Focal nonspecific colitis within differential. No pericolonic abscess seen. 2. Quite distended urinary bladder with back pressure hydroureteronephrosis. Suspect acute on chronic bladder outlet obstruction. Consider Toussaint catheterization. 3. Severe coronary calcifications. 4. Small hiatal hernia with note of prior Anika. - FOLLOW UP Follow Up: Disposition: 01 Home, Self Care Condition: Good Prescriptions: oxyCODONE/ACET 5/325 [Percocet 5 mg/325 mg] 1 tab PO Q4HR PRN #20 tablet PRN Reason: Pain Ferrous Sulfate 325 mg PO BID #60 tablet Moxifloxacin [Avelox] 400 mg PO DAILY 10 Days #10 tablet Saccharomyces Boulardii [Florastor] 250 mg PO BID 20 Days #40 capsule Diet: Regular Activity Restrictions: No Restrictions Shower Restrictions: No Driving Restrictions: No Weight Bearing: Full Weight Instruction Topics: Saccharomyces boulardii Florastor oral dosage forms, Moxifloxacin tablets, Diverticulitis Dc Additional Instructions or Follow Up instructions: You were treated for diverticulitis with at least 4 days of IV antibiotics. Our general surgeon was consulted via phone to review management and agreed with plan. You were changed to oral antibiotics with a probiotic; to continue for an additional 10 days at home. For the abdominal pain, you were given a paper-script for narcotics. Get a colonoscopy in about 6 weeks. Your bladder and ureters were grossly enlarged, which requires decompression with the use of a toussaint catheter. I recommend prompt urology follow up for that. Your anemia was not improving on its own, so you were given IV iron, and 2 units of PRBCs. Your last hemoglobin was much improved at 10.3. Continue on ferrous sulfate BID. Please see your PCP within a week. Please see your urologist at your earliest convenience. - TIME SPENT Time Spent in Discharge (Minutes): 45
[2017-04-21] MEDS ORDERED: ERTAPENEM 1 GM in SODIUM CHLORIDE 0.9% MINIBAG 100 ML IV SCH (14:00)
[2017-04-21] MEDS ORDERED: ZOLPIDEM 5 MG TABLET PO PRN (22:00)
== END 2017-04-21 14:45 | disposition home or self-care (01) | DRG 392 ==
LOC: ED 13:00 → MS2 14:52
PROVIDERS: ADMIT Nurse Practitioner; ATTEND Nurse Practitioner
PROC: 30233N1 Transfusion of Nonautologous Red Blood Cells into Peripheral Vein, Percutaneous Approach (ICD-10-PCS; principal; 2017-04-20)
DX: K57.30 Diverticulosis of large intestine without perforation or abscess without bleeding (principal); D62 Acute posthemorrhagic anemia; I10 Essential (primary) hypertension; N31.9 Neuromuscular dysfunction of bladder, unspecified; Z86.12 Personal history of poliomyelitis; I25.10 Atherosclerotic heart disease of native coronary artery without angina pectoris; Z95.5 Presence of coronary angioplasty implant and graft; G89.29 Other chronic pain; M54.9 Dorsalgia, unspecified; F41.9 Anxiety disorder, unspecified; F32.9 Major depressive disorder, single episode, unspecified; N40.1 Benign prostatic hyperplasia with lower urinary tract symptoms; N39.498 Other specified urinary incontinence; R33.8 Other retention of urine; I73.9 Peripheral vascular disease, unspecified; Z80.9 Family history of malignant neoplasm, unspecified; Z82.3 Family history of stroke; Z82.49 Family history of ischemic heart disease and other diseases of the circulatory system; Z66 Do not resuscitate
CPT/HCPCS: 36415; 80053; 83690; 83735; 85014; 85018; 85025; 86850; 86900; 86901; 86920; 96361; 96374; 99283; 99285

== ENCOUNTER 2017-04-28 14:02 | Outpatient (CLI) | payer BC ==
[2017-04-28 19:05] LABS: BASOPHILS # (AUTO) 0.1 10^3/uL (0.0-0.1); BASOPHILS % (AUTO) 1.2 %; EOSINOPHILS # (AUTO) 0.2 10^3/uL (0.0-0.7); EOSINOPHILS % (AUTO) 3.2 %; HGB - HEMOGLOBIN 11.8 g/dL (14.0-18.0); LYMPHOCYTES # (AUTO) 0.7 10^3/uL (1.5-3.5); LYMPHOCYTES % (AUTO) 9.8 %; MEAN CORPUSCULAR HEMOGLOBIN 30.4 pg (27.0-31.0); MEAN CORPUSCULAR HGB CONC 32.8 g/dL (32.0-36.0); MEAN CORPUSCULAR VOLUME 92.7 fL (80.0-94.0); MEAN PLATELET VOLUME 7.7 fL (7.4-11.4); MONOCYTES # (AUTO) 0.4 10^3/uL (0.0-1.0); NEUTROPHILS # (AUTO) 5.9 10^3/uL (1.5-6.6); NEUTROPHILS % (AUTO) 80.8 %; PLT - PLATELET COUNT 450 10^3/uL (130-450); RED BLOOD COUNT 3.88 10^6/uL (4.70-6.10); RED CELL DISTRIBUTION WIDTH 16.7 % (12.0-15.0); WHITE BLOOD COUNT 7.3 x10^3/uL (4.8-10.8)
== END 2017-04-28 14:03 | disposition home or self-care (01) ==
LOC: LAB.WCP 14:02
PROVIDERS: ATTEND Physician Assistant Medical
DX: K92.2 Gastrointestinal hemorrhage, unspecified (principal)
CPT/HCPCS: 36415; 85025

== ENCOUNTER 2017-07-09 08:07 | Outpatient (CLI) | payer BC, OTHER ==
[2017-07-09 08:27] LABS: BASOPHILS # (AUTO) 0.1 10^3/uL (0.0-0.1); BASOPHILS % (AUTO) 1.4 %; EOSINOPHILS # (AUTO) 0.1 10^3/uL (0.0-0.7); EOSINOPHILS % (AUTO) 2.3 %; HGB - HEMOGLOBIN 14.5 g/dL (14.0-18.0); LYMPHOCYTES # (AUTO) 1.1 10^3/uL (1.5-3.5); LYMPHOCYTES % (AUTO) 27.4 %; MEAN CORPUSCULAR HGB CONC 32.5 g/dL (32.0-36.0); MEAN CORPUSCULAR VOLUME 79.9 fL (80.0-94.0); MEAN PLATELET VOLUME 7.3 fL (7.4-11.4); MONOCYTES # (AUTO) 0.4 10^3/uL (0.0-1.0); MONOCYTES % (AUTO) 9.6 %; NEUTROPHILS # (AUTO) 2.4 10^3/uL (1.5-6.6); NEUTROPHILS % (AUTO) 59.3 %; PLT - PLATELET COUNT 197 10^3/uL (130-450); RED BLOOD COUNT 5.59 10^6/uL (4.70-6.10); RED CELL DISTRIBUTION WIDTH 17.2 % (12.0-15.0)
[2017-07-09 08:58] LABS: % IRON SATURATION 8 % (20-50); IRON 40 ug/dL (45-182); TOTAL IRON BINDING CAPACITY 487 ug/dL (250-450); TRANSFERRIN 348 mg/dL (180-329)
== END 2017-07-09 08:08 | disposition home or self-care (01) ==
LOC: LAB 08:07
PROVIDERS: ATTEND Internal Medicine Gastroenterology
DX: K57.91 Diverticulosis of intestine, part unspecified, without perforation or abscess with bleeding (principal); K92.2 Gastrointestinal hemorrhage, unspecified; K57.32 Diverticulitis of large intestine without perforation or abscess without bleeding; Z86.010 Personal history of colon polyps; G14 Postpolio syndrome; K59.00 Constipation, unspecified
CPT/HCPCS: 36415; 82728; 83540; 84466; 85025

== ENCOUNTER 2017-08-10 09:55 | Outpatient (CLI) | payer BC ==
--- NOTE | 2017-08-12 17:43 | Ultrasound Report ---
ABDOMEN ULTRASOUND: 08/10/2017 HISTORY: Bloating, abdominal pain. COMPARISON: 04/17/2017 CT scan abdomen and pelvis. TECHNIQUE: Real-time scanning by the manager clinical pharmacy with saved static images reviewed. FINDINGS LIVER: Normal echotexture, length 13.1 cm. GALLBLADDER: No stones, wall thickness 1.9 mm. COMMON BILE DUCT: 4 mm. PANCREAS: Obscured by bowel gas. KIDNEYS: Right: 11.3 cm, unremarkable. No stones, masses, or obstruction. Left: 11.3 cm. Inferior lateral cyst 9 mm. No solid mass, hydronephrosis, or stone. SPLEEN: 9.8 cm, unremarkable. AORTA AND INFERIOR VENA CAVA: Imaged portions unremarkable. FREE FLUID: None. URINARY BLADDER: Markedly distended, approximately 1440 mL. IMPRESSION: MARKEDLY DISTENDED URINARY BLADDER, VOLUME APPROXIMATELY 1440 ML. OTHERWISE, NEGATIVE ABDOMEN ULTRASOUND LIMITED BY BOWEL GAS. TD: 08/10/2017 15:57 [facility]ENTER[facility]ida
== END 2017-08-10 09:56 | disposition home or self-care (01) ==
LOC: DI 09:55
PROVIDERS: ATTEND Internal Medicine Gastroenterology
DX: R14.0 Abdominal distension (gaseous) (principal); K30 Functional dyspepsia; N32.89 Other specified disorders of bladder
CPT/HCPCS: 76700

== ENCOUNTER 2017-09-07 09:04 | Outpatient (CLI) | payer BC ==
[2017-09-07 09:50] LABS: BASOPHILS # (AUTO) 0.1 10^3/uL (0.0-0.1); BASOPHILS % (AUTO) 1.8 %; EOSINOPHILS # (AUTO) 0.1 10^3/uL (0.0-0.7); EOSINOPHILS % (AUTO) 1.6 %; HGB - HEMOGLOBIN 17.6 g/dL (14.0-18.0); LYMPHOCYTES # (AUTO) 0.9 10^3/uL (1.5-3.5); LYMPHOCYTES % (AUTO) 23.3 %; MEAN CORPUSCULAR HEMOGLOBIN 30.4 pg (27.0-31.0); MEAN CORPUSCULAR HGB CONC 33.6 g/dL (32.0-36.0); MEAN CORPUSCULAR VOLUME 90.4 fL (80.0-94.0); MEAN PLATELET VOLUME 7.4 fL (7.4-11.4); MONOCYTES # (AUTO) 0.4 10^3/uL (0.0-1.0); MONOCYTES % (AUTO) 11.1 %; NEUTROPHILS # (AUTO) 2.5 10^3/uL (1.5-6.6); NEUTROPHILS % (AUTO) 62.2 %; PLT - PLATELET COUNT 197 10^3/uL (130-450); RED CELL DISTRIBUTION WIDTH 28.1 % (12.0-15.0)
[2017-09-07 10:06] LABS: % IRON SATURATION 34 % (20-50); IRON 142 ug/dL (45-182); TOTAL IRON BINDING CAPACITY 414 ug/dL (250-450); TRANSFERRIN 296 mg/dL (180-329)
[2017-09-07 10:09] LABS: RBC MORPHOLOGY (MULTIPLE) 3+ ANISOCYTOSIS (NORMAL)
== END 2017-09-07 09:05 | disposition home or self-care (01) ==
LOC: LAB 09:04
PROVIDERS: ATTEND Internal Medicine Gastroenterology
DX: K57.93 Diverticulitis of intestine, part unspecified, without perforation or abscess with bleeding (principal); K59.00 Constipation, unspecified; K30 Functional dyspepsia; R14.0 Abdominal distension (gaseous); E83.19 Other disorders of iron metabolism; G14 Postpolio syndrome; Z86.010 Personal history of colon polyps
CPT/HCPCS: 36415; 82728; 83540; 84466; 85025

== ENCOUNTER 2017-12-10 08:18 | Outpatient (CLI) | payer BC ==
[2017-12-10 08:53] LABS: BASOPHILS % (AUTO) 0.9 %; EOSINOPHILS % (AUTO) 0.8 %; HGB - HEMOGLOBIN 19.6 g/dL (14.0-18.0); LYMPHOCYTES # (AUTO) 0.8 10^3/uL (1.5-3.5); LYMPHOCYTES % (AUTO) 18.2 %; MEAN CORPUSCULAR HEMOGLOBIN 34.8 pg (27.0-31.0); MEAN CORPUSCULAR VOLUME 99.5 fL (80.0-94.0); MEAN PLATELET VOLUME 7.7 fL (7.4-11.4); MONOCYTES # (AUTO) 0.3 10^3/uL (0.0-1.0); MONOCYTES % (AUTO) 6.2 %; NEUTROPHILS # (AUTO) 3.3 10^3/uL (1.5-6.6); NEUTROPHILS % (AUTO) 73.9 %; PLT - PLATELET COUNT 205 10^3/uL (130-450); RED BLOOD COUNT 5.64 10^6/uL (4.70-6.10); RED CELL DISTRIBUTION WIDTH 14.2 % (12.0-15.0); WHITE BLOOD COUNT 4.4 x10^3/uL (4.8-10.8)
[2017-12-10 09:40] LABS: % IRON SATURATION 68 % (20-50); IRON 290 ug/dL (45-182); TOTAL IRON BINDING CAPACITY 424 ug/dL (250-450); TRANSFERRIN 303 mg/dL (180-329)
== END 2017-12-10 08:19 | disposition home or self-care (01) ==
LOC: LAB 08:18
PROVIDERS: ATTEND Internal Medicine Gastroenterology
DX: K57.32 Diverticulitis of large intestine without perforation or abscess without bleeding (principal); R14.0 Abdominal distension (gaseous); K59.00 Constipation, unspecified; K30 Functional dyspepsia; K57.91 Diverticulosis of intestine, part unspecified, without perforation or abscess with bleeding; E61.1 Iron deficiency; G14 Postpolio syndrome; Z86.010 Personal history of colon polyps
CPT/HCPCS: 36415; 82728; 83540; 84466; 85025

== ENCOUNTER 2018-02-25 12:27 | Outpatient (CLI) | payer BC ==
[2018-02-25 12:45] LABS: BASOPHILS % (AUTO) 0.4 %; EOSINOPHILS # (AUTO) 0.1 10^3/uL (0.0-0.7); EOSINOPHILS % (AUTO) 0.8 %; HGB - HEMOGLOBIN 19.2 g/dL (14.0-18.0); LYMPHOCYTES # (AUTO) 1.4 10^3/uL (1.5-3.5); MEAN CORPUSCULAR HEMOGLOBIN 35.2 pg (27.0-31.0); MEAN CORPUSCULAR HGB CONC 35.6 g/dL (32.0-36.0); MEAN CORPUSCULAR VOLUME 98.9 fL (80.0-94.0); MEAN PLATELET VOLUME 7.7 fL (7.4-11.4); MONOCYTES # (AUTO) 0.4 10^3/uL (0.0-1.0); MONOCYTES % (AUTO) 5.9 %; NEUTROPHILS # (AUTO) 5.1 10^3/uL (1.5-6.6); NEUTROPHILS % (AUTO) 72.9 %; PLT - PLATELET COUNT 186 10^3/uL (130-450); RED BLOOD COUNT 5.44 10^6/uL (4.70-6.10); RED CELL DISTRIBUTION WIDTH 12.9 % (12.0-15.0)
[2018-02-25 13:36] LABS: % IRON SATURATION 30 % (20-50); IRON 112 ug/dL (45-182); TOTAL IRON BINDING CAPACITY 377 ug/dL (250-450); TRANSFERRIN 269 mg/dL (180-329)
== END 2018-02-25 12:28 | disposition home or self-care (01) ==
LOC: LAB 12:27
PROVIDERS: ATTEND Internal Medicine Gastroenterology
DX: K57.32 Diverticulitis of large intestine without perforation or abscess without bleeding (principal); R14.0 Abdominal distension (gaseous); K59.00 Constipation, unspecified; K30 Functional dyspepsia; K57.91 Diverticulosis of intestine, part unspecified, without perforation or abscess with bleeding; K92.2 Gastrointestinal hemorrhage, unspecified; E83.19 Other disorders of iron metabolism; Z86.010 Personal history of colon polyps; G14 Postpolio syndrome
CPT/HCPCS: 36415; 82728; 83540; 84466; 85025

== ENCOUNTER 2018-05-03 08:05 | Outpatient (CLI) | payer BC ==
[2018-05-03 09:03] LABS: CHOL/HDL RATIO 3.1 (<5.0); CHOLESTEROL 189 mg/dL; HDL CHOLESTEROL 61 mg/dL; LDL CHOLESTEROL,CALCULATED 108 mg/dL; LDL/HDL RATIO 1.8 (<3.6); VLDL CHOLESTEROL 20 mg/dL
== END 2018-05-03 08:06 | disposition home or self-care (01) ==
LOC: LAB 08:05
PROVIDERS: ATTEND Physician Assistant
DX: E78.5 Hyperlipidemia, unspecified (principal); N40.1 Benign prostatic hyperplasia with lower urinary tract symptoms
CPT/HCPCS: 36415; 80061; 83721; 84153

== ENCOUNTER 2018-07-20 12:32 | Outpatient (CLI) | payer BC ==
[2018-07-20 12:43] LABS: BASOPHILS % (AUTO) 0.7 %; EOSINOPHILS # (AUTO) 0.1 10^3/uL (0.0-0.7); EOSINOPHILS % (AUTO) 0.9 %; HGB - HEMOGLOBIN 18.4 g/dL (14.0-18.0); LYMPHOCYTES # (AUTO) 1.2 10^3/uL (1.5-3.5); LYMPHOCYTES % (AUTO) 17.1 %; MEAN CORPUSCULAR HEMOGLOBIN 34.6 pg (27.0-31.0); MEAN CORPUSCULAR HGB CONC 34.6 g/dL (32.0-36.0); MEAN PLATELET VOLUME 7.2 fL (7.4-11.4); MONOCYTES # (AUTO) 0.4 10^3/uL (0.0-1.0); MONOCYTES % (AUTO) 5.2 %; NEUTROPHILS # (AUTO) 5.3 10^3/uL (1.5-6.6); NEUTROPHILS % (AUTO) 76.1 %; PLT - PLATELET COUNT 199 10^3/uL (130-450); RED BLOOD COUNT 5.31 10^6/uL (4.70-6.10); RED CELL DISTRIBUTION WIDTH 13.2 % (12.0-15.0)
[2018-07-20 13:30] LABS: FERRITIN 112.2 ng/mL (23.9-336.2); FOLATE 6.84 ng/mL (5.90 - >24.8)
[2018-07-20 13:42] LABS: % IRON SATURATION 23 % (20-50); IRON 87 ug/dL (45-182); TOTAL IRON BINDING CAPACITY 374 ug/dL (250-450); TRANSFERRIN 267 mg/dL (180-329)
== END 2018-07-20 12:33 | disposition home or self-care (01) ==
LOC: LAB 12:32
PROVIDERS: ATTEND Internal Medicine Gastroenterology
DX: K57.32 Diverticulitis of large intestine without perforation or abscess without bleeding (principal); K59.00 Constipation, unspecified; K30 Functional dyspepsia; K57.91 Diverticulosis of intestine, part unspecified, without perforation or abscess with bleeding; E83.19 Other disorders of iron metabolism; Z86.010 Personal history of colon polyps; G14 Postpolio syndrome; Z87.19 Personal history of other diseases of the digestive system
CPT/HCPCS: 36415; 82607; 82728; 82746; 83540; 84466; 85025

== ENCOUNTER 2021-02-17 10:23 | Outpatient (CLI) | payer BC ==
[2021-02-17 10:43] LABS: BASOPHILS % (AUTO) 0.7 %; EOSINOPHILS # (AUTO) 0.1 10^3/uL (0.0-0.7); EOSINOPHILS % (AUTO) 1.2 %; HCT - HEMATOCRIT 47.6 % (42.0-52.0); HGB - HEMOGLOBIN 16.8 g/dL (14.0-18.0); LYMPHOCYTES # (AUTO) 1.2 10^3/uL (1.5-3.5); LYMPHOCYTES % (AUTO) 19.9 %; MEAN CORPUSCULAR HEMOGLOBIN 34.7 pg (27.0-31.0); MEAN CORPUSCULAR HGB CONC 35.3 g/dL (32.0-36.0); MEAN CORPUSCULAR VOLUME 98.3 fL (80.0-94.0); MEAN PLATELET VOLUME 9.1 fL (7.4-11.4); MONOCYTES # (AUTO) 0.5 10^3/uL (0.0-1.0); MONOCYTES % (AUTO) 7.9 %; NEUTROPHILS # (AUTO) 4.1 10^3/uL (1.5-6.6); NEUTROPHILS % (AUTO) 69.8 %; PLT - PLATELET COUNT 181 10^3/uL (130-450); RED BLOOD COUNT 4.84 10^6/uL (4.70-6.10); RED CELL DISTRIBUTION WIDTH 12.5 % (12.0-15.0); WHITE BLOOD COUNT 5.8 x10^3/uL (4.8-10.8)
[2021-02-17 11:01] LABS: ALBUMIN/GLOBULIN RATIO 1.2 (1.0-2.2); ALKALINE PHOSPHATASE 55 IU/L (42-121); ALT ALANINE AMINOTRANSFERASE 22 IU/L (10-60); AST ASPARTATE AMINOTRANSFERASE 20 IU/L (10-42); BILIRUBIN,TOTAL 1.2 mg/dL (0.2-1.0); BUN - BLOOD UREA NITROGEN 21 mg/dL (6-20); CALCIUM 9.1 mg/dL (8.5-10.3); CARBON DIOXIDE - CO2 23 mmol/L (21-32); CHLORIDE 101 mmol/L (101-111); CHOL/HDL RATIO 2.8 (<5.0); CHOLESTEROL 168 mg/dL; CREATININE 0.6 mg/dL (0.6-1.2); GFR - MDRD 133 (>89); GLUCOSE 139 mg/dL (70-100); HDL CHOLESTEROL 59 mg/dL; LDL CHOLESTEROL,CALCULATED 79 mg/dL; LDL/HDL RATIO 1.3 (<3.6); POTASSIUM 3.9 mmol/L (3.5-5.0); SODIUM 134 mmol/L (135-145); TOTAL PROTEIN 7.4 g/dL (6.7-8.2); TRIGLYCERIDES 150 mg/dL; VLDL CHOLESTEROL 30 mg/dL
[2021-02-17 11:12] LABS: THYROID STIMULATING HORMONE 1.91 uIU/mL (0.34-5.60)
[2021-02-17 13:49] LABS: BILIRUBIN,URINE NEGATIVE (NEGATIVE); GLUCOSE, URINE (UA) NEGATIVE (NEGATIVE); KETONES,URINE (UA) NEGATIVE (NEGATIVE); LEUKOCYTE ESTERASE, URINE LARGE (NEGATIVE); NITRITE,URINE NEGATIVE (NEGATIVE); OCCULT BLOOD,URINE TRACE-INTA (NEGATIVE); PROTEIN,URINE NEGATIVE (NEGATIVE); UROBILINOGEN,URINE 0.2 (NORMAL) E.U./dL (NORMAL)
[2021-02-17 13:52] LABS: CLARITY,URINE CLOUDY (CLEAR)
[2021-02-17 14:13] LABS: BACTERIA,URINE Many /HPF (None Seen); RBC,URINE 0-5 /HPF (0-5); SQUAMOUS EPITHELIAL CELL,UR NONE SEEN (<= Few); WBC,URINE >25 /HPF (0-3)
== END 2021-02-17 10:24 | disposition home or self-care (01) ==
LOC: LAB 10:23
PROVIDERS: ATTEND Nurse Practitioner
DX: I10 Essential (primary) hypertension (principal); E78.5 Hyperlipidemia, unspecified; Z12.5 Encounter for screening for malignant neoplasm of prostate; R53.83 Other fatigue
CPT/HCPCS: 36415; 80053; 80061; 81001; 83721; 84153; 84443; 85025; 87086